=== PATIENT | male | born 1955 | race Caucasian/White ===

== ENCOUNTER → 2018-01-27 07:02 | Outpatient (CLI) | payer SELFPAY ==
[2018-01-27 10:14] LABS: AST(SGOT) 22 U/L (15-37); Alanine Aminotransfer ALT/SGPT 41 U/L (16-61); Albumin, Serum 3.6 g/dL (3.2-5.0); Alkaline Phosphatase 72 U/L (45-117); Bilirubin, Direct 0.08 mg/dL (0.00-0.30); Cholesterol 147 mg/dL (200); Globulin 3.7 g/dL (2.2-4.2); High Density Lipoprotein 36 mg/dL; Protein, Total 7.3 g/dL (6.4-8.2); Triglycerides 110 mg/dL; Very Low Density Lipoprotein 22 mg/dL (5-40)
[2018-01-27 10:22] LABS: Glucose 132 mg/dL (74-106); PSA,Total- Diagnostic 3.95 ng/mL (0.0-4.0)
[2018-01-27 10:26] LABS: Hemoglobin A1c 6.4 % (4.2-6.3)
== END ==
PROVIDERS: Internal Medicine Cardiovascular Disease; Family Provider Family Medicine; PCP Family Medicine; Visit Provider Family Medicine
DX: E78.5 Hyperlipidemia, unspecified (principal); R73.09 Other abnormal glucose; R97.20 Elevated prostate specific antigen [PSA]; Z79.899 Other long term (current) drug therapy
CPT/HCPCS: 36415; 80061; 80076; 82947; 83036; 84153

== ENCOUNTER 2018-02-03 08:59 | Inpatient (IN) | payer OTHER, SELFPAY ==
[2018-02-03] VITALS (12 sets, daily range): BP systolic 114–145; BP diastolic 70–90; PULSE 58–80; RESP 14–18; TEMP 36.7–36.9; O2SAT 96–99; BMI 33.5; BMI 32.5
--- NOTE | 2018-02-03 09:07 | EKG12_ITS ---
Test Reason : DIZZINESS/SYNCOPE Blood Pressure : / mmHG Vent. Rate : 076 BPM Atrial Rate : 076 BPM P-R Int : 168 ms QRS Dur : 100 ms QT Int : 366 ms P-R-T Axes : 055 -04 033 degrees QTc Int : 411 ms Sinus rhythm with occasional Premature ventricular complexes Low voltage QRS (LIMB LEADS) Poor R wave progression Confirmed by AURA MARLOW, DANA ([id number]), editorial assistant ASHLEY MENDES ([id number] on 02/09/2018 1:33:19 PM Referred By: Gabriel Mendes Confirmed By:DANA CHAVARRIA MD
[2018-02-03] MEDS: 0.9% Normal Saline 1,000 ML 150 ML IV ×3 (09:12→20:48)
[2018-02-03 09:15] LABS: Absolute Lymphocyte Count 2.51 X10^3/ul (0.83-4.51); Absolute Neutrophil Count 4.8 X10^3/uL (2.0-7.7); Basophil# 0.03 X10^3/uL; Basophil% 0.4 % (0-1); Eosinophil# 0.26 X10^3/uL; Eosinophils% 3.1 % (0-5); Hematocrit 44.8 % (40-54); Lymphocyte # 2.51 X10^3/ul (4.0); Lymphocyte % 29.6 % (19-41); Mean Corp Hgb Conc 33.5 g/gl (32-36); Mean Corpuscular Hgb 30.5 pg (27.0-32.0); Mean Corpuscular Volume 91.1 fL (80-94); Monocyte# 0.84 X10^3/uL; Monocyte% 9.9 % (0-10); Neutrophil # 4.81 X10^3/uL (2.7-7.7); Neutrophil % 56.8 % (47-70); POSITIVE COUNT NO; POSITIVE DIFFERENTIAL NO; POSITIVE MORPHOLOGY NO; Platelet Count 253 K/mm3 (150-450); RBC Distribution Width CV 13.2 % (11.6-14.6); RBC Distribution Width SD 43.8 fl (35.1-43.9); Red Blood Count 4.92 M/mm3 (4.6-6.2); White Blood Count 8.5 K/mm3 (4.4-11.0)
--- NOTE | 2018-02-03 09:21 | RAD_ITS ---
STUDY: X-RAY CHEST REASON FOR EXAM: Male, 62 years old. Syncopal episode. TECHNIQUE: Single AP portable view of the chest. COMPARISON: Comparison is made with prior study dated June 04, 2010. FINDINGS: EKG electrodes are seen. The lungs are clear and expanded. There is no demonstrated pleural abnormality. Normal size heart. Normal mediastinum and louie. Normal visualized pulmonary arteries. Normal visualized aortic arch and descending thoracic aorta. Normal visualized thoracic spine. Normal visualized ribs, clavicles, and shoulders. There is no demonstrated abnormality of the visualized soft tissue structures of the upper abdomen. RAD/Chest 1 View (Portable) IMPRESSION: Normal x-ray examination of the chest. Electronically Signed: Hitesh Solis MD at 9:51 EDT Tel [phone], Service support ,
--- NOTE | 2018-02-03 09:24 | CT_ITS ---
STUDY: CT BRAIN WITHOUT CONTRAST REASON FOR EXAM: Male, 62 years old. Dizziness. Unresponsiveness. RADIATION DOSAGE (If Supplied By Facility): CTDIvol = ( 44.99 ) mGy, DLP = ( 762.36 ) mGycm TECHNIQUE: Transaxial CT imaging of the brain was performed without administration of intravenous contrast material. Individualized dose optimization techniques were used for this CT. COMPARISON: None. FINDINGS: Normal soft tissue structures. Normal calvarium. Normal size ventricles and extra-axial spaces for the patient's age. Normal white matter tracts of the cerebral hemispheres. Normal basal ganglia and thalami. Normal brainstem. Normal cerebellum. There is no intracranial hemorrhage. There are no findings of an acute ischemic infarction. Normal visualized paranasal sinuses. CT/Brain/Head without Contrast IMPRESSION: Normal unenhanced CT scan of the brain. Electronically Signed: Hitesh Solis MD at 9:52 EDT Tel [phone], Service support ,
[2018-02-03 09:26] LABS: Anion Gap 8 (5-15); BUN 13 mg/dL (7-18); BUN/Creat Ratio 13.5 RATIO (10-20); Calcium,Total 8.4 mg/dL (8.5-10.1); Chloride 108 mmol/L (98-107); Creatinine, Serum 0.96 mg/dL (0.70-1.30); EST Glomerular Filtration Rate 84 mL/min (>60); Est Glom Filt Rate - Afr Amer 102 mL/min (>60); Estimated Creatinine Clearance 81.83 ml/min; Glucose 177 mg/dL (74-106); Potassium 3.8 mmol/L (3.5-5.1); Sodium Level 140 mmol/L (136-145)
--- NOTE | 2018-02-03 10:12 | ED.VISSUMM ---
- ER Visit Summary Date of Service: 02/03/18 Chief Complaint: [Syncope] History of Present Illness: The patient is a 62 M [presents to the emergency department with complaint of syncopal episode today while at work. Patient remembers being at his desk and feeling lightheaded or dizzy. Patient states the next thing he remembers he was surrounded by nurses. 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 There was no seizure-like activity noted. Patient denies any chest pain, palpitations, or shortness of breath. On arrival in the emergency department patient is asymptomatic. Patient does have a history of coronary artery disease with 3 cardiac stents placed in 2009. Patient has a history of hypertension and high cholesterol. Patient states that he did have one other episode of passing out many years ago after drinking a very cold drink. Patient denies coughing or sneezing or any painful stimulus prior to the episode today. Patient has not had any recent illness.] Physical Examination: [HEENT-PERRLA, EOMI. Cranial nerves II through XII grossly intact. TMs clear. Mucous membranes moist. No adenopathy. No bite wounds to tongue or oral mucosa. Cardiovascular-regular rate and rhythm without murmur or ectopy Lungs-clear to auscultation, chest wall stable without crepitus or subcu emphysema Abdomen-normoactive bowel sounds, soft, nontender, no rebound or rigidity, no peritoneal signs. Patient was incontinent of urine. Neuro ipdf-olxhjh-itwh and heel olguin testing within normal limits, negative Romberg, negative pronator drift, fundi benign. NIH stroke scale equals 0. Extremities-intact ?4, normal range of motion, normal pulses, atraumatic] Test Results: [CT scan of the brain without contrast showed nothing acute. Chest x-ray was normal. EKG obtained shows sinus rhythm with a ventricular rate of 76 bpm with occasional PVCs. CBC with differential was normal. Chemistries were normal. Troponin was less than 0.015. Orthostatics were positive and that his blood pressure dropped by more than 20 points on the systolic side.] Emergency Department Course and Treatment: [Patient was given 1 L normal same fluid bolus] Treatment Plan: Admit for further workup and evaluation of syncope. [It is unclear the cause of the syncope vasovagal versus seizure versus dysrhythmia.] Disposition: [Admit] Impression: [Syncope-etiology uncertain] This note was generated with [employer] dictation software. It may contain incorrect words, spelling, and punctuation that were not noted in review of the chart prior to signing ED Disposition - Plan for ED Patient: Chief Complaint: Dizziness Referrals: Gabriel Mendes MD [Primary Care Provider] -
--- NOTE | 2018-02-03 10:16 | ED.DCSUM_ITS ---
- ER Visit Summary Date of Service: 02/03/18 Chief Complaint: [Syncope] History of Present Illness: The patient is a 62 M [presents to the emergency department with complaint of syncopal episode today while at work. Patient remembers being at his desk and feeling lightheaded or dizzy. Patient states the next thing he remembers he was surrounded by nurses. 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 There was no seizure-like activity noted. Patient denies any chest pain, palpitations, or shortness of breath. On arrival in the emergency department patient is asymptomatic. Patient does have a history of coronary artery disease with 3 cardiac stents placed in 2009. Patient has a history of hypertension and high cholesterol. Patient states that he did have one other episode of passing out many years ago after drinking a very cold drink. Patient denies coughing or sneezing or any painful stimulus prior to the episode today. Patient has not had any recent illness.] Physical Examination: [HEENT-PERRLA, EOMI. Cranial nerves II through XII grossly intact. TMs clear. Mucous membranes moist. No adenopathy. No bite wounds to tongue or oral mucosa. Cardiovascular-regular rate and rhythm without murmur or ectopy Lungs-clear to auscultation, chest wall stable without crepitus or subcu emphysema Abdomen-normoactive bowel sounds, soft, nontender, no rebound or rigidity, no peritoneal signs. Patient was incontinent of urine. Neuro bcej-ndzjvd-phql and heel olguin testing within normal limits, negative Romberg, negative pronator drift, fundi benign. NIH stroke scale equals 0. Extremities-intact ?4, normal range of motion, normal pulses, atraumatic] Test Results: [CT scan of the brain without contrast showed nothing acute. Chest x-ray was normal. EKG obtained shows sinus rhythm with a ventricular rate of 76 bpm with occasional PVCs. CBC with differential was normal. Chemistries were normal. Troponin was less than 0.015. Orthostatics were positive and that his blood pressure dropped by more than 20 points on the systolic side.] Emergency Department Course and Treatment: [Patient was given 1 L normal same fluid bolus] Treatment Plan: Admit for further workup and evaluation of syncope. [It is unclear the cause of the syncope vasovagal versus seizure versus dysrhythmia.] Disposition: [Admit] Impression: [Syncope-etiology uncertain] This note was generated with [employer] dictation software. It may contain incorrect words, spelling, and punctuation that were not noted in review of the chart prior to signing ED Disposition - Plan for ED Patient: Chief Complaint: Dizziness Referrals: Gabriel Mendes MD [Primary Care Provider] -
[2018-02-03] MEDS: 0.9% Normal Saline 1,000 ML 999 ML IV (11:34)
--- NOTE | 2018-02-03 12:29 | ECHOD_ITS ---
Reason For Study: SYNCOPE Procedure This was a 2D Doppler, Color Flow transthoracic echocardiogram. The exam was of fair technical quality due to body habitus. The study was technically difficult. Contrast injection was performed. Exam performed portable in patient room. Left Ventricle Normal LV size. Segmental dysfunction with preserved ejection fraction (see wall motion). The estimated ejection fraction is 55 %. No evidence for diastolic dysfunction. Posterior-Basal: Hypokinetic. Infero-Basal: Hypokinetic. Right Ventricle Normal RV size. Normal systolic function. Atria Normal left atrium. Normal right atrium. No doppler evidence for ASD. Mitral Valve There is no mitral annular calcification. Normal mitral valve. Trivial mitral valve insufficiency. Tricuspid Valve Normal tricuspid valve. Trivial tricuspid valve insufficiency. Right ventricular systolic pressure estimated to be 24 mmHg. Aortic Valve Trisinus/trileaflet aortic valve. Normal aortic valve. Pulmonic Valve The pulmonic valve is not well visualized. Trivial pulmonic valve insufficiency. Great Vessels Normal sized aortic root. Pericardium/Pleural No pericardial effusion. Medication Diluted definity 4ml given slow IV push to enhance endocardial definition. MMode/2D Measurements & Calculations LVIDd: 4.9 cm IVSd: 0.87 cm Ao root diam: 3.2 cm LVIDs: 3.7 cm LVPWd: 0.86 cm RVDd: 4.2 cm FS: 25.6 % LAV(MOD-bp): 65.6 ml EDV(MOD-sp4): 167.0 ml EDV(MOD-sp2): 104.3 ml LAV(MOD-bp) Indexed: 30.5 ml/m2 ESV(MOD-sp4): 74.4 ml EF(MOD-sp2): 47.5 % LAV(MOD-sp2): 42.2 ml EF(MOD-sp4): 55.4 % LAV(MOD-sp4): 75.5 ml SV(MOD-sp4): 92.6 ml SV(MOD-sp2): 49.5 ml LA A4 area: 25.0 cm2 RA A4 area: 21.9 cm2 Doppler Measurements & Calculations MV E max david: 90.3 cm/sec Lat Peak E' David: 14.2 cm/sec Med Peak E' David: 9.6 cm/sec MV A max david: 60.1 cm/sec E/E' lat: 6.4 E/E' med: 9.4 MV E/A: 1.5 Ao V2 max: 128.2 cm/sec LV V1 max: 104.2 cm/sec PA V2 max: 94.0 cm/sec Ao max P.6 mmHg LV V1 max P.3 mmHg TR max david: 230.0 cm/sec TR max P.2 mmHg Interpretation Summary The study was technically difficult. Contrast injection was performed. Segmental dysfunction with preserved ejection fraction (see wall motion). The estimated ejection fraction is 55 %. Trivial mitral valve insufficiency. Trivial tricuspid valve insufficiency. Trivial pulmonic valve insufficiency. Right ventricular systolic pressure estimated to be 24 mmHg. No evidence for diastolic dysfunction. Ordering Physician: Edwin Botello Referring Physician: Gabriel Mendes Performed By: Payton Mercedes, RAMEZ, RVT
[2018-02-03 13:06] LABS: Magnesium 1.9 mg/dL (1.6-2.6)
--- NOTE | 2018-02-03 19:16 | PCM.HP.STD ---
Problem List (1) Syncope Status: Acute Qualifiers: Syncope type: unspecified Qualified Code(s): R55 - Syncope and collapse (2) HTN (hypertension), benign Status: Chronic (3) Atherosclerotic heart disease of [place] coronary artery without angina pectoris Status: Chronic Qualifiers: Comment: 7-10-10 PTCA/PHOEBE to circ, 7-12-10 PTCA/PHOEBE to mid LAD,proximal first diagonal; (4) HLD (hyperlipidemia) Status: Chronic Qualifiers: History of Present Illness Date of Admission: 02/03/18 Chief Complaint: Syncope. Patient is a 63 years old male who presents with an episode of syncope, admitted on 02/03/18. He was at work this morning, doing some desk job. He suddenly felt funny with blurred vision. 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 He was diaphoretic after he woke up, but did not think he had chest pain. He did not have significant problems with dizziness, or visual change with darkening / white-out following blurred vision. He has no previous history of seizure disorder, although he had accident with bladder incontinence. Loss of consciousness itself was unwitnessed. He has history of coronary artery disease, had stent placement in 2009. He reports good normal function recently without any symptoms of angina. Initial troponin was normal, and EKG showed normal sinus rhythm with occasional PAC. Later, his troponin was elevated to 0.329. Past Medical History Past Medical History (Chronic Problems): Chronic Problems (Last Updated 12/21/17 @ 17:04 by Augusto dAam) Encounter for long-term current use of high risk medication (Chronic) Palpitations (Chronic) HTN (hypertension), benign (Chronic) H/O percutaneous transluminal coronary angioplasty (Chronic) 7-10-10 PTCA/PHOEBE to circ, 7-12-10 PTCA/PHOEBE to mid LAD,proximal first diagonal; Atherosclerotic heart disease of [place] coronary artery without angina pectoris (Chronic) 7-10-10 PTCA/PHOEBE to circ, 7-12-10 PTCA/PHOEBE to mid LAD,proximal first diagonal; Old myocardial infarction (Chronic) HLD (hyperlipidemia) (Chronic) Allergies dye Allergy (Uncoded 02/03/18 09:06) Rash ANGIOGRAM DYE Home Medications: Ambulatory Orders Medication Instructions Recorded losartan 50 mg tablet 50 mg PO QDAY #90 tab 10/11/17 aspirin 81 mg tablet,delayed 81 mg PO QDAY tab 12/23/17 release atorvastatin 80 mg tablet 80 mg PO QDAY 12/23/17 Smoking Status: Former smoker - *Family History Sibling History Items: Asthma - Sister., Seizures - History of pediatric seizure with his sister. Review of Systems Comment: ROS: In general: Patient has been in good health, denied of any constitutional symptoms, such as weight loss, or gain, fever, chills, or night sweats. Patient denied of any profound fatigue. HEENT: Unremarkable. Patient denied of any dizziness, chronic headache, blurred vision, double vision, dry mouth, or nasal congestion. CV/respiratory: See HPI. GI: Patient denied any abdominal pain, nausea, vomiting, diarrhea, constipation, melena, or hematochezia. : Patient denied any significant urinary symptoms. Neurology: Unremarkable. There is no history of seizure as an adult. Psychological: Unremarkable. ?. Endocrine: Unremarkable. Musculoskeletal: Unremarkable. VTE Information - Inpt Only VTE Present on Admission: No VTE Mechan Device Prophylaxis: Knee High RADHA Hose VTE Pharm Prophylaxis ordered?: Yes Patient Problems: Active and Suspected Problems (Last Updated 12/21/17 @ 17:04 by Augusto Adam) Syncope (Acute) Objective: In general, patient is a well-nourished and developed adult. HEENT: Head is atraumatic, and normocephalic. Pupils are equal, round, and reactive to light and accommodations. Neck is supple. There is no lymphadenopathy, or thyromegaly. Oral mucosa is pink, and moist. There are no lesions. Heart: Auscultation is normal with regular rhythm and rate. There is no extra heart sounds, or murmurs. S1 and S2 are present. Point of maximal impulse is not displaced. Lungs: Lungs are clear to auscultation bilaterally. There is no wheezing, or crackles. Abdomen: Abdominal wall is non-tender, and non-distended. There is no palpable mass or organomegaly. Normoactive bowel sounds are present. Extremities: There is no cyanosis or clubbing. Peripheral pulses are palpable. There is no edema. Skin: There are no any skin discoloration or lesions. Neurological: CN II - XII are intact. Sensory and motor functions are grossly normal with no obvious deficit. Cerebellar functions are within normal range. Gait was not tested. - Physical Exam Vital Signs Temp Pulse Resp BP Pulse Ox 98.2 F 65 16 135/71 H 96 02/03/18 17:16 02/03/18 17:16 02/03/18 17:16 02/03/18 17:16 02/03/18 17:16 Oxygen Flow Rate (L/min) 2 Oxygen Delivery Method Nasal Cannula Weight: 220 lb 0.341 oz Body Mass Index (BMI) 32.5 Intake and Output for Last 24 Hours 02/01/18 02/02/18 02/03/18 23:59 23:59 23:59 Intake Total 541 / 541 Balance 541 / 541 Laboratory Tests Past 24 Hrs 02/03/18 02/03/18 12:09 15:15 Troponin I 0.329 H 0.435 H Diagnostic Data Chest X-Ray 02/03/18 09:21 IMPRESSION: Normal x-ray examination of the chest. Electronically Signed: Hitesh Solis MD at 9:51 EDT Tel [phone], Service support , Brain CT 02/03/18 09:24 IMPRESSION: Normal unenhanced CT scan of the brain. Electronically Signed: Hitesh Solis MD at 9:52 EDT Tel [phone], Service support , Assessment/Plan Active and Suspected Problems (Last Updated 12/21/17 @ 17:04 by Augusto Adam) Syncope (Acute) Patient is a 63 years old male who presents with an episode of syncope, admitted on 02/03/18. He was at work this morning, doing some desk job. He suddenly felt funny with blurred vision. 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 He was diaphoretic after he woke up, but did not think he had chest pain. He did not have significant problems with dizziness, or visual change with darkening / white-out following blurred vision. He has no previous history of seizure disorder, although he had accident with bladder incontinence. Loss of consciousness itself was unwitnessed. He has history of coronary artery disease, had stent placement in 2009. He reports good normal function recently without any symptoms of angina. Initial troponin was normal, and EKG showed normal sinus rhythm with occasional PAC. Later, his troponin was elevated to 0.329. #1 Syncope. Troponin was been elevating. Continue to trend. Etiology is not clear. Possibly due to ACS, or he may have episodes of tachyarrhythmia that causes syncopal episode and demand-mismatch. He is chest pain free. Consult cardiology. #2 Elevated troponin. See above. #3 History of coronary artery disease. S/P stent in 2009. He follows Dr. Valle. #4 Essential hypertension. Continue losartan. VTE prophylaxis: heparin SQ. GI prophylaxis: H2 gifty po. Patient is full code. Disposition: Home in 1 to 2 days Code Visit OBSV E&M: 20676 Initial observation care L3
--- NOTE | 2018-02-03 19:28 | HP.PCM_ITS ---
Problem List (1) Syncope Status: Acute Qualifiers: Syncope type: unspecified Qualified Code(s): R55 - Syncope and collapse (2) HTN (hypertension), benign Status: Chronic (3) Atherosclerotic heart disease of [place] coronary artery without angina pectoris Status: Chronic Qualifiers: Comment: 7-10-10 PTCA/PHOEBE to circ, 7-12-10 PTCA/PHOEBE to mid LAD,proximal first diagonal; (4) HLD (hyperlipidemia) Status: Chronic Qualifiers: History of Present Illness Date of Admission: 02/03/18 Chief Complaint: Syncope. Patient is a 63 years old male who presents with an episode of syncope , admitted on 02/03/18. He was at work this morning, doing some desk job. He suddenly felt ?funny? with blurred vision. 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 He was diaphoretic after he woke up, but did not think he had chest pain. He did not have significant problems with dizziness, or visual change with darkening / ?white-out? following blurred vision. He has no previous history of seizure disorder, although he had accident with bladder incontinence. Loss of consciousness itself was unwitnessed. He has history of coronary artery disease, had stent placement in 2009. He reports good normal function recently without any symptoms of angina. Initial troponin was normal, and EKG showed normal sinus rhythm with occasional PAC. Later, his troponin was elevated to 0.329. Past Medical History Past Medical History (Chronic Problems): Chronic Problems (Last Updated 12/21/17 @ 17:04 by Augusto Adam) Encounter for long-term current use of high risk medication (Chronic) Palpitations (Chronic) HTN (hypertension), benign (Chronic) H/O percutaneous transluminal coronary angioplasty (Chronic) 7-10-10 PTCA/PHOEBE to circ, 7-12-10 PTCA/PHOEBE to mid LAD,proximal first diagonal; Atherosclerotic heart disease of [place] coronary artery without angina pectoris (Chronic) 7-10-10 PTCA/PHOEBE to circ, 7-12-10 PTCA/PHOEBE to mid LAD,proximal first diagonal; Old myocardial infarction (Chronic) HLD (hyperlipidemia) (Chronic) Allergies dye Allergy (Uncoded 02/03/18 09:06) Rash ANGIOGRAM DYE Home Medications: Ambulatory Orders Medication Instructions Recorded losartan 50 mg tablet 50 mg PO QDAY #90 tab 10/11/17 aspirin 81 mg tablet,delayed 81 mg PO QDAY tab 12/23/17 release atorvastatin 80 mg tablet 80 mg PO QDAY 12/23/17 Smoking Status: Former smoker - *Family History Sibling History Items: Asthma - Sister., Seizures - History of pediatric seizure with his sister. Review of Systems Comment: ROS: In general: Patient has been in good health, denied of any constitutional symptoms, such as weight loss, or gain, fever, chills, or night sweats. Patient denied of any profound fatigue. HEENT: Unremarkable. Patient denied of any dizziness, chronic headache, blurred vision, double vision, dry mouth, or nasal congestion. CV/respiratory: See HPI. GI: Patient denied any abdominal pain, nausea, vomiting, diarrhea, constipation, melena, or hematochezia. : Patient denied any significant urinary symptoms. Neurology: Unremarkable. There is no history of seizure as an adult. Psychological: Unremarkable. ?. Endocrine: Unremarkable. Musculoskeletal: Unremarkable. VTE Information - Inpt Only VTE Present on Admission: No VTE Mechan Device Prophylaxis: Knee High RADHA Hose VTE Pharm Prophylaxis ordered?: Yes Patient Problems: Active and Suspected Problems (Last Updated 12/21/17 @ 17:04 by Augusto Adam) Syncope (Acute) Objective: In general, patient is a well-nourished and developed adult. HEENT: Head is atraumatic, and normocephalic. Pupils are equal, round, and reactive to light and accommodations. Neck is supple. There is no lymphadenopathy, or thyromegaly. Oral mucosa is pink, and moist. There are no lesions. Heart: Auscultation is normal with regular rhythm and rate. There is no extra heart sounds, or murmurs. S1 and S2 are present. Point of maximal impulse is not displaced. Lungs: Lungs are clear to auscultation bilaterally. There is no wheezing, or crackles. Abdomen: Abdominal wall is non-tender, and non-distended. There is no palpable mass or organomegaly. Normoactive bowel sounds are present. Extremities: There is no cyanosis or clubbing. Peripheral pulses are palpable. There is no edema. Skin: There are no any skin discoloration or lesions. Neurological: CN II - XII are intact. Sensory and motor functions are grossly normal with no obvious deficit. Cerebellar functions are within normal range. Gait was not tested. - Physical Exam Vital Signs Temp Pulse Resp BP Pulse Ox 98.2 F 65 16 135/71 H 96 02/03/18 17:16 02/03/18 17:16 02/03/18 17:16 02/03/18 17:16 02/03/18 17:16 Oxygen Flow Rate (L/min) 2 Oxygen Delivery Method Nasal Cannula Weight: 220 lb 0.341 oz Body Mass Index (BMI) 32.5 Intake and Output for Last 24 Hours 02/01/18 02/02/18 02/03/18 23:59 23:59 23:59 Intake Total 541 / 541 Balance 541 / 541 Laboratory Tests Past 24 Hrs 02/03/18 02/03/18 12:09 15:15 Troponin I 0.329 H 0.435 H Diagnostic Data Chest X-Ray 02/03/18 09:21 IMPRESSION: Normal x-ray examination of the chest. Electronically Signed: Hitesh Solis MD at 9:51 EDT Tel [phone], Service support , Brain CT 02/03/18 09:24 IMPRESSION: Normal unenhanced CT scan of the brain. Electronically Signed: Hitesh Solis MD at 9:52 EDT Tel [phone], Service support , Assessment/Plan Active and Suspected Problems (Last Updated 12/21/17 @ 17:04 by Augusto Adam) Syncope (Acute) Patient is a 63 years old male who presents with an episode of syncope , admitted on 02/03/18. He was at work this morning, doing some desk job. He suddenly felt ?funny? with blurred vision. 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 He was diaphoretic after he woke up, but did not think he had chest pain. He did not have significant problems with dizziness, or visual change with darkening / ?white-out? following blurred vision. He has no previous history of seizure disorder, although he had accident with bladder incontinence. Loss of consciousness itself was unwitnessed. He has history of coronary artery disease, had stent placement in 2009. He reports good normal function recently without any symptoms of angina. Initial troponin was normal, and EKG showed normal sinus rhythm with occasional PAC. Later, his troponin was elevated to 0.329. #1 Syncope. Troponin was been elevating. Continue to trend. Etiology is not clear. Possibly due to ACS, or he may have episodes of tachyarrhythmia that causes syncopal episode and demand-mismatch. He is chest pain free. Consult cardiology. #2 Elevated troponin. See above. #3 History of coronary artery disease. S/P stent in 2009. He follows Dr. Valle. #4 Essential hypertension. Continue losartan. VTE prophylaxis: heparin SQ. GI prophylaxis: H2 gifty po. Patient is full code. Disposition: Home in 1 to 2 days Code Visit OBSV E&M: [id number] Initial observation care L3
--- NOTE | 2018-02-03 20:24 | PCM.CONS.C ---
Problem List (1) Syncope Status: Acute (2) NSTEMI (non-ST elevated myocardial infarction) Status: Acute (3) CAD (coronary artery disease) Status: Chronic Qualifiers: Coronary Disease-Associated Artery/Lesion type: [place] artery [place] vs. transplanted heart: [place] heart Associated angina: without angina Qualified Code(s): I25.10 - Atherosclerotic heart disease of [place] coronary artery without angina pectoris (4) S/P PTCA (percutaneous transluminal coronary angioplasty) Status: Chronic (5) HLD (hyperlipidemia) Status: Chronic Qualifiers: Hyperlipidemia type: unspecified Qualified Code(s): E78.5 - Hyperlipidemia, unspecified (6) HTN (hypertension), benign Status: Chronic Reason for Consult Date of Consultation: 02/03/18 History of Present Illness: The patient is a 62 year old white male with a past medical history of underlying CAD, PCI, hyperlipidemia, and hypertension who presents for evaluation of syncope. 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 He notes the next thing he remembers is multiple people standing around him saying that he looked flushed and diaphoretic area and he does not recall sensing any palpitations or alterations in his underlying cardiac rate or rhythm. He does not recall any chest discomfort or difficulty breathing prior to or following his event. He states he was evaluated by the EMS and subsequently brought to the hospital for further evaluation. He notes by the time he arrived at the hospital he was feeling near normal. Since being in the hospital he states he feels back to his usual status. He has remained very active. He has not described any concerning symptoms with activity. He has had no orthopnea or PND or peripheral pitting edema. He has noted remote palpitations for which she is undergone evaluation in the past which included a 24-hour Holter monitor performed on 03/23/2017 that noted rare PACs and rare PVCs. He had no narrow or wide complex runs and no prolonged pauses. He has not had syncope in the past. Since being in the hospital he has had cardiac enzymes performed which have been noted for abnormal troponin I levels. His ECG was noted for underlying sinus rhythm with low voltage QRS in the limb leads and poor R-wave progression. He has had an occasional PVC. He underwent a transthoracic echocardiogram that demonstrated the left ventricle to have left ventricular regional wall motion abnormalities with overall preserved LVEF of 55% with trivial MR/TR and IA. His estimated RV systolic pressure was 24 mmHg. He had no evidence of diastolic dysfunction. He also had a brain CT scan performed. According to the radiology report this was a normal unenhanced brain CT scan. [] Past Medical History Allergies/Adverse Reactions: Allergies dye Allergy (Uncoded 02/03/18 09:06) Rash ANGIOGRAM DYE Home Medications: Ambulatory Orders Medication Instructions Recorded losartan 50 mg tablet 50 mg PO QDAY #90 tab 10/11/17 aspirin 81 mg tablet,delayed 81 mg PO QDAY tab 12/23/17 release atorvastatin 80 mg tablet 80 mg PO QDAY 12/23/17 Past Medical History (Chronic Problems): Chronic Problems (Last Updated 12/21/17 @ 17:04 by Augusto Adam) CAD (coronary artery disease) (Chronic) S/P PTCA (percutaneous transluminal coronary angioplasty) (Chronic) Encounter for long-term current use of high risk medication (Chronic) Palpitations (Chronic) HTN (hypertension), benign (Chronic) H/O percutaneous transluminal coronary angioplasty (Chronic) 7-10-10 PTCA/PHOEBE to circ, 7-12-10 PTCA/PHOEBE to mid LAD,proximal first diagonal; Atherosclerotic heart disease of [place] coronary artery without angina pectoris (Chronic) 7-10-10 PTCA/PHOEBE to circ, 7-12-10 PTCA/PHOEBE to mid LAD,proximal first diagonal; Old myocardial infarction (Chronic) HLD (hyperlipidemia) (Chronic) Surgical History: angioplasty - *Family History Sibling Family History: Family History (Last Reviewed 12/24/17 @ 11:34 by Lashell Bird) Father CAD (coronary artery disease) Diabetes Myocardial infarction Mother Hypertension HLD (hyperlipidemia) Sister Hypertension Sister Asthma Sister Arthritis History Items: Asthma - Sister., Seizures - History of pediatric seizure with his sister. Lives: Spouse/ Significant Other Smoking Status: Former smoker Alcohol: None Drugs: None Review of Systems - Review of Systems General: Denies: Fever, Night Sweats, Fatigue Cardiovascular: Reports: Syncope. Denies: Chest Discomfort, Shortness of Breath, Orthopnea, PND, Peripheral Edema, Palpitations, Lightheadedness, Dizziness, Near Syncope Respiratory: Denies: Cough, Sputum Production, Hemoptysis Gastrointestinal: Denies: Hematemesis, Hematochezia, Melena Genitourinary: Denies: Dysuria, Hematuria Skin: Denies: Rash Subjectve: This is a 62-year-old white male appears to be resting comfortably at the moment in no acute distress Objective: Vital Signs Temp Pulse Resp BP Pulse Ox 98.2 F 68 16 135/71 H 96 02/03/18 17:16 02/03/18 18:58 02/03/18 17:16 02/03/18 17:16 02/03/18 17:16 Oxygen Flow Rate (L/min) 2 Oxygen Delivery Method Nasal Cannula Weight: 220 lb 0.341 oz Body Mass Index (BMI) 32.5 Intake and Output for Last 24 Hours 02/01/18 02/02/18 02/03/18 23:59 23:59 23:59 Intake Total 541 / 541 Balance 541 / 541 General: Awake, Alert, Oriented x 3, Cooperative, No Acute Distress HEENT: Atraumatic, Normocephalic, PERRL, EOMI, Sclera Non Icteric Oral: Moist Mucosa Neck: Supple, Good ROM, No JVD Lungs: Clear to auscultation Cardiovascular: Regular Rhythm, Premature Ectopic Beats, Normal S1, Normal S2 Vascular: No Carotid Bruits Abdomen: Bowel Sounds Present, Soft, Non Tender Extremities: No Cyanosis, No Clubbing, No edema Neurological: No Focal Motor or Sensory Deficit 02/03/18 12:09: Troponin I 0.329 H 02/03/18 15:15: Troponin I 0.435 H Rhythm: Sinus rhythm; occasional PVC EKG: As noted above ECHO: As noted above Stress Test: 06/05/2010: Exercise tolerance test/nuclear imaging study: Small fixed basal inferior perfusion defect suggestive of prior infarct with no significant reversible defects to suggest stress-induced myocardial ischemia with a gated LVEF of 55% Cardiac Cath: [facility]: 09/01/2010: Left main considered absent; LAD demonstrating a mid 80% stenosis; diagonal branch demonstrating a proximal 90% stenosis; LCx demonstrating a previously placed PHOEBE in the midsection being patent; RCA being patent [facility]: 03/22/2010: Left ventricle with mild hypokinesis of the inferior wall with an LVEF of 55%; mid LAD with 80% stenosis; first diagonal branch with 80% stenosis; LCx reported as distally occluded with subsequent successful PHOEBE; proximal RCA with 60% stenosis; left main coronary artery considered absent PCI: 03/24/2010: PHOEBE to the mid LAD and to the first diagonal branch Holter monitor: As noted above CXR: Preliminary evaluation: No acute cardiopulmonary disease process appreciated Assessment/Plan 1. Syncope The patient had a syncopal event. The etiology is unclear. From a cardiac standpoint he does have underlying cardiovascular disease and now has been found to have abnormal cardiac as well as abnormal troponin I levels. This would raise the concern of the possibility of progression of CAD which could lead to myocardial ischemia which could lead to transient dysrhythmias and subsequent syncope. The patient has been evaluated for other etiologies including a primary TAX ASSESSOR event. This appears to be negative at this time. No report of any obvious classic seizure like activity with tremulous body motion. However he may still be evaluated for this. Other possible etiologies may include thromboembolic disease such as pulmonary emboli. The patient did have a trip to [place] approximately 3-4 weeks ago. He states he drove to [place] and back in his RV. He states he had frequent stops based upon needing to let his dogs out of the vehicle. He denies any concerning lower extremity discomfort, erythema, edema, etc. since returning from his trip. At the present time the patient will continue to be monitored. He will continue his cardiovascular evaluation. This will include a repeat diagnostic cardiac catheterization. The procedure and risks were discussed with the patient and he was agreeable to this approach. In the interim he will continue cardiovascular medical therapy as deemed appropriate. 2. Non-ST segment elevation [place] She does have abnormal troponin I levels concerning for an acute non-ST segment elevation [place]. Thus far there is no other definitive explanation for his troponin I levels. He will continue evaluation care as noted above. 3. CAD status post previous PTCA/PHOEBE to the LAD, diagonal branch, and LCx There are concerns of the patient may have progressed with underlying CAD as noted above which could lead to myocardial ischemia, transient dysrhythmias, and syncope. There are no other obvious explanations at this time to explain the patient's event he will continue his cardiac monitoring, medical therapy, and further evaluation. Again this will include repeat diagnostic cardiac catheterization which depending upon the findings may or may not lead to additional revascularization therapy. 4. Hyperlipidemia The patient will continue lipid-lowering therapy. 5. Hypertension The patient's blood pressure is being monitored. He will continue medical management and follow-up. Comment: The patient's case was discussed with the patient, his spouse, and Dr. Botello. This note was generated with [employer] dictation software. It may contain incorrect words, spelling, and punctuation that were not noted in checking the note before signing.
--- NOTE | 2018-02-03 20:35 | CON.PCM_ITS ---
Problem List (1) Syncope Status: Acute (2) NSTEMI (non-ST elevated myocardial infarction) Status: Acute (3) CAD (coronary artery disease) Status: Chronic Qualifiers: Coronary Disease-Associated Artery/Lesion type: [place] artery [place] vs. transplanted heart: [place] heart Associated angina: without angina Qualified Code(s): I25.10 - Atherosclerotic heart disease of [place] coronary artery without angina pectoris (4) S/P PTCA (percutaneous transluminal coronary angioplasty) Status: Chronic (5) HLD (hyperlipidemia) Status: Chronic Qualifiers: Hyperlipidemia type: unspecified Qualified Code(s): E78.5 - Hyperlipidemia , unspecified (6) HTN (hypertension), benign Status: Chronic Reason for Consult Date of Consultation: 02/03/18 History of Present Illness: The patient is a 62 year old white male with a past medical history of underlying CAD, PCI, hyperlipidemia, and hypertension who presents for evaluation of syncope. 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 He notes the next thing he remembers is multiple people standing around him saying that he looked flushed and diaphoretic area and he does not recall sensing any palpitations or alterations in his underlying cardiac rate or rhythm. He does not recall any chest discomfort or difficulty breathing prior to or following his event. He states he was evaluated by the EMS and subsequently brought to the hospital for further evaluation. He notes by the time he arrived at the hospital he was feeling near normal. Since being in the hospital he states he feels back to his usual status. He has remained very active. He has not described any concerning symptoms with activity. He has had no orthopnea or PND or peripheral pitting edema. He has noted remote palpitations for which she is undergone evaluation in the past which included a 24-hour Holter monitor performed on 03/23/2017 that noted rare PACs and rare PVCs. He had no narrow or wide complex runs and no prolonged pauses. He has not had syncope in the past. Since being in the hospital he has had cardiac enzymes performed which have been noted for abnormal troponin I levels. His ECG was noted for underlying sinus rhythm with low voltage QRS in the limb leads and poor R-wave progression. He has had an occasional PVC. He underwent a transthoracic echocardiogram that demonstrated the left ventricle to have left ventricular regional wall motion abnormalities with overall preserved LVEF of 55% with trivial MR/TR and [place]. His estimated RV systolic pressure was 24 mmHg. He had no evidence of diastolic dysfunction. He also had a brain CT scan performed. According to the radiology report this was a normal unenhanced brain CT scan. [] Past Medical History Allergies/Adverse Reactions: Allergies dye Allergy (Uncoded 02/03/18 09:06) Rash ANGIOGRAM DYE Home Medications: Ambulatory Orders Medication Instructions Recorded losartan 50 mg tablet 50 mg PO QDAY #90 tab 10/11/17 aspirin 81 mg tablet,delayed 81 mg PO QDAY tab 12/23/17 release atorvastatin 80 mg tablet 80 mg PO QDAY 12/23/17 Past Medical History (Chronic Problems): Chronic Problems (Last Updated 12/21/17 @ 17:04 by Augusto Adam) CAD (coronary artery disease) (Chronic) S/P PTCA (percutaneous transluminal coronary angioplasty) (Chronic) Encounter for long-term current use of high risk medication (Chronic) Palpitations (Chronic) HTN (hypertension), benign (Chronic) H/O percutaneous transluminal coronary angioplasty (Chronic) 7-10-10 PTCA/PHOEBE to circ, 7-12-10 PTCA/PHOEBE to mid LAD,proximal first diagonal; Atherosclerotic heart disease of [place] coronary artery without angina pectoris (Chronic) 7-10-10 PTCA/PHOEBE to circ, 7-12-10 PTCA/PHOEBE to mid LAD,proximal first diagonal; Old myocardial infarction (Chronic) HLD (hyperlipidemia) (Chronic) Surgical History: angioplasty - *Family History Sibling Family History: Family History (Last Reviewed 12/24/17 @ 11:34 by Lashell Bird) Father CAD (coronary artery disease) Diabetes Myocardial infarction Mother Hypertension HLD (hyperlipidemia) Sister Hypertension Sister Asthma Sister Arthritis History Items: Asthma - Sister., Seizures - History of pediatric seizure with his sister. Lives: Spouse/ Significant Other Smoking Status: Former smoker Alcohol: None Drugs: None Review of Systems - Review of Systems General: Denies: Fever, Night Sweats, Fatigue Cardiovascular: Reports: Syncope. Denies: Chest Discomfort, Shortness of Breath , Orthopnea, PND, Peripheral Edema, Palpitations, Lightheadedness, Dizziness, Near Syncope Respiratory: Denies: Cough, Sputum Production, Hemoptysis Gastrointestinal: Denies: Hematemesis, Hematochezia, Melena Genitourinary: Denies: Dysuria, Hematuria Skin: Denies: Rash Subjectve: This is a 62-year-old white male appears to be resting comfortably at the moment in no acute distress Objective: Vital Signs Temp Pulse Resp BP Pulse Ox 98.2 F 68 16 135/71 H 96 02/03/18 17:16 02/03/18 18:58 02/03/18 17:16 02/03/18 17:16 02/03/18 17:16 Oxygen Flow Rate (L/min) 2 Oxygen Delivery Method Nasal Cannula Weight: 220 lb 0.341 oz Body Mass Index (BMI) 32.5 Intake and Output for Last 24 Hours 02/01/18 02/02/18 02/03/18 23:59 23:59 23:59 Intake Total 541 / 541 Balance 541 / 541 General: Awake, Alert, Oriented x 3, Cooperative, No Acute Distress HEENT: Atraumatic, Normocephalic, PERRL, EOMI, Sclera Non Icteric Oral: Moist Mucosa Neck: Supple, Good ROM, No JVD Lungs: Clear to auscultation Cardiovascular: Regular Rhythm, Premature Ectopic Beats, Normal S1, Normal S2 Vascular: No Carotid Bruits Abdomen: Bowel Sounds Present, Soft, Non Tender Extremities: No Cyanosis, No Clubbing, No edema Neurological: No Focal Motor or Sensory Deficit 02/03/18 12:09: Troponin I 0.329 H 02/03/18 15:15: Troponin I 0.435 H Rhythm: Sinus rhythm; occasional PVC EKG: As noted above ECHO: As noted above Stress Test: 06/05/2010: Exercise tolerance test/nuclear imaging study: Small fixed basal inferior perfusion defect suggestive of prior infarct with no significant reversible defects to suggest stress-induced myocardial ischemia with a gated LVEF of 55% Cardiac Cath: [facility]: 09/01/2010: Left main considered absent; LAD demonstrating a mid 80% stenosis; diagonal branch demonstrating a proximal 90% stenosis; LCx demonstrating a previously placed PHOEBE in the midsection being patent; RCA being patent [facility]: 03/22/2010: Left ventricle with mild hypokinesis of the inferior wall with an LVEF of 55%; mid LAD with 80% stenosis; first diagonal branch with 80% stenosis; LCx reported as distally occluded with subsequent successful PHOEBE; proximal RCA with 60% stenosis; left main coronary artery considered absent PCI: 03/24/2010: PHOEBE to the mid LAD and to the first diagonal branch Holter monitor: As noted above CXR: Preliminary evaluation: No acute cardiopulmonary disease process appreciated Assessment/Plan 1. Syncope The patient had a syncopal event. The etiology is unclear. From a cardiac standpoint he does have underlying cardiovascular disease and now has been found to have abnormal cardiac as well as abnormal troponin I levels. This would raise the concern of the possibility of progression of CAD which could lead to myocardial ischemia which could lead to transient dysrhythmias and subsequent syncope. The patient has been evaluated for other etiologies including a primary MATTRESS [employer] event. This appears to be negative at this time. No report of any obvious classic seizure like activity with tremulous body motion. However he may still be evaluated for this. Other possible etiologies may include thromboembolic disease such as pulmonary emboli. The patient did have a trip to [place] approximately 3-4 weeks ago. He states he drove to [place] and back in his RV. He states he had frequent stops based upon needing to let his dogs out of the vehicle. He denies any concerning lower extremity discomfort, erythema, edema, etc. since returning from his trip. At the present time the patient will continue to be monitored. He will continue his cardiovascular evaluation. This will include a repeat diagnostic cardiac catheterization. The procedure and risks were discussed with the patient and he was agreeable to this approach. In the interim he will continue cardiovascular medical therapy as deemed appropriate. 2. Non-ST segment elevation MT She does have abnormal troponin I levels concerning for an acute non-ST segment elevation MT. Thus far there is no other definitive explanation for his troponin I levels. He will continue evaluation care as noted above. 3. CAD status post previous PTCA/PHOEBE to the LAD, diagonal branch, and LCx There are concerns of the patient may have progressed with underlying CAD as noted above which could lead to myocardial ischemia, transient dysrhythmias, and syncope. There are no other obvious explanations at this time to explain the patient's event he will continue his cardiac monitoring, medical therapy, and further evaluation. Again this will include repeat diagnostic cardiac catheterization which depending upon the findings may or may not lead to additional revascularization therapy. 4. Hyperlipidemia The patient will continue lipid-lowering therapy. 5. Hypertension The patient's blood pressure is being monitored. He will continue medical management and follow-up. Comment: The patient's case was discussed with the patient, his spouse, and Dr. Botello. This note was generated with [employer] dictation software. It may contain incorrect words, spelling, and punctuation that were not noted in checking the note before signing.
[2018-02-03] MEDS: DiphenhydrAMINE 25 MG Capsule 50 MG PO (20:41)
[2018-02-03] MEDS: predniSONE 20 MG Tablet 60 MG PO (20:41)
[2018-02-03] MEDS: TICAGRELOR 90 MG TABLET 180 MG PO (20:47)
[2018-02-03] MEDS: Atorvastatin Calcium 80 MG Tablet PO (22:04)
[2018-02-03] MEDS: Famotidine 20 MG Tablet PO (22:04)
[2018-02-03] MEDS: Metoprolol Tartrate 25 MG Tablet 12.5 MG PO (22:04)
[2018-02-03] MEDS: Heparin Injection (Vial) 5,000 UNIT/ML VIAL 5000 UNIT SC (22:04)
[2018-02-04] VITALS (37 sets, daily range): BP systolic 108–138; BP diastolic 61–95; PULSE 49–98; RESP 8–19; TEMP 36.7–37; O2SAT 93–98
[2018-02-04] MEDS: 0.9% Normal Saline 1,000 ML 150 ML IV (03:18)
[2018-02-04 05:07] LABS: Hematocrit 42.8 % (40-54); Hemoglobin 14.8 g/dl (13.0-16.5); Mean Corp Hgb Conc 34.6 g/gl (32-36); Mean Corpuscular Hgb 31.5 pg (27.0-32.0); Mean Corpuscular Volume 91.1 fL (80-94); Mean Platelet Vol. 10.1 fl (6.2-12.0); Platelet Count 244 K/mm3 (150-450); RBC Distribution Width CV 12.9 % (11.6-14.6); RBC Distribution Width SD 42.7 fl (35.1-43.9); White Blood Count 8.9 K/mm3 (4.4-11.0)
[2018-02-04 05:11] LABS: Scan Indicated on CBC? Y/N NO
[2018-02-04 05:17] LABS: International Normalized Ratio 1.1; Prothrombin Time (Protime)PT. 13.8 SECONDS (11.7-14.9)
[2018-02-04 05:18] LABS: Partial Thromboplast Time 34.9 Seconds (24.1-36.2)
[2018-02-04 05:30] LABS: Anion Gap 6 (5-15); BUN 13 mg/dL (7-18); BUN/Creat Ratio 14.5 RATIO (10-20); Calcium,Total 8.2 mg/dL (8.5-10.1); Chloride 110 mmol/L (98-107); Creatinine, Serum 0.89 mg/dL (0.70-1.30); EST Glomerular Filtration Rate 92 mL/min (>60); Est Glom Filt Rate - Afr Amer 111 mL/min (>60); Estimated Creatinine Clearance 88.26 ml/min; Glucose 167 mg/dL (74-106); Potassium 4.4 mmol/L (3.5-5.1); Sodium Level 142 mmol/L (136-145); Thyroid Stim Hormone (TSH) 0.49 uIU/mL (0.358-3.74)
--- NOTE | 2018-02-04 05:55 | EKG12_ITS ---
Test Reason : AM EKG Blood Pressure : / mmHG Vent. Rate : 059 BPM Atrial Rate : 059 BPM P-R Int : 182 ms QRS Dur : 096 ms QT Int : 392 ms P-R-T Axes : 051 019 063 degrees QTc Int : 388 ms Sinus bradycardia Nonspecific T wave abnormality Abnormal ECG Confirmed by AURA MARLOW, DANA ([id number]), image editor ASHLEY MENDES ([id number]) on 02/09/2018 2:52:12 PM Referred By: Gabriel Mendes Confirmed By:DANA CHAVARRIA MD
[2018-02-04] MEDS: Famotidine 20 MG Tablet PO ×2 (06:28→21:39)
[2018-02-04] MEDS: Losartan Potassium 50 MG Tablet PO (06:28)
[2018-02-04] MEDS: Aspirin E.C. 81 MG Tablet PO (06:28)
[2018-02-04] MEDS: TICAGRELOR 90 MG TABLET PO ×2 (06:28→21:39)
[2018-02-04] MEDS: Metoprolol Tartrate 25 MG Tablet 12.5 MG PO ×2 (06:28→21:39)
[2018-02-04] MEDS: predniSONE 20 MG Tablet 60 MG PO (08:16)
[2018-02-04] MEDS: DiphenhydrAMINE 25 MG Capsule 50 MG PO (08:17)
--- NOTE | 2018-02-04 09:41 | CASEMGMT ---
Addendum entered by Kajal Alena 02/04/18 09:46: Ref # from call to [employer]: [id number]. Morgan CONTRERAS CM Original Note: Pt to have heart cath today. Call to pt's insurance, [employer], to verify coverage for in-network tertiary facilities. Per automotive sales representative, pt has no in or out of network benefits and pt can go anywhere as long as they accept MCR allowable amount. Pt has no deductible and stay will be paid at 100% of the MCR allowable amount. Per automotive sales representative, as long as stay is pre-certed, it will be covered. Gianluca UM aware also at this time and states that [facility] precert department is working on getting inpatient stay pre-certed at this time. Morgan CONTRERAS CM
--- NOTE | 2018-02-04 11:08 | CL.I_ITS ---
Patient Name: CORWIN ANN Study Date: 02/04/2018 Performing: Alex Del Castillo MD Ht: 68.89 inches 175 cm : 1955 Wt: 220.46 lbs 100 kg Age: 62 Gender: male BSA: 2.15 PROCEDURE(S) PERFORMED [id number], CORONARY OR GRAFT, INITIAL VESSEL [id number] W OR WO PTCA, SINGLE CORONARY ARTERY [id number] W OR WO PTCA, EACH ADD'L ARTERY, SAME MAJOR CLINICAL PROFILE AND CO-MORBIDITIES Heart Failure: None CAD Presentations: Non-STEMI CONCLUSIONS IVUS ostial LAD showing 30-40% lesion with eccentric plaque Successful PCI Prox OM2 using Elunir 2.5x17 mm PHOEBE, post-dilated using 3.0 mm balloon Successful PCI Prox LPDA using Elunir 2.5x12 mm PHOEBE RECOMMENDATIONS ASA Indefinitley Brilinta for at least 12 months Follow up with Dr. Valle INTERVENTION INFORMATION LESION SITE: LAD (Ostial) PROCEDURE: IVUS for pre PCI assessment of vessel Lesion Devices: Cordis 6 Fr XB2.5 VBT 100cm Guide Catheter [place] Coronary IVUS Catheter Terumo .014 Runthrough Extra Floppy 180cm straight LESION SITE: 2nd OM (Proximal) Lesion Complexity: Non-High/Non-C, culprit lesion: Yes Pre intervention FLOR flow: 3 PROCEDURE: Drug Eluting Stent Post Stenosis: 0 % Post intervention FLOR flow: 3 Lesion Devices: Cordis 6 Fr XB2.5 VBT 100cm Guide Catheter Terumo .014 Runthrough Extra Floppy 180cm straight Cardinal Elunir PHOEBE RX 2.5x17 Neeraj Sci NC EMERGE MR 3.00x15 BALLOON LESION SITE: Lt PDA (Proximal) Lesion Complexity: Non-High/Non-C Pre Stenosis: 90 % Pre intervention FLOR flow: 3 PROCEDURE: Drug Eluting Stent 0 % Post intervention FLOR flow: 3 Lesion Devices: Cardinal Elunir PHOEBE RX 2.5x12 Neeraj Sci NC EMERGE MR 2.50x12 BALLOON COMPLICATIONS No Complications PROCEDURE MEDICATIONS Fentanyl 50 mcg IV Versed 1 mg IV Versed 1 mg IV Oxygen: 2 L/min via nasal cannula Heparin diluted in 23cc Heparinized saline. Patient given 10cc IA of this solution. 02/04/2018 08:48: 53 Heparin 8000 unit(s) IV 02/04/2018 09:46:04 Heparin 2000 unit(s) IV 02/04/2018 10:03:18 Heparin 2000 unit(s) IV 02/04/2018 10:34:02 Nitro 100 mcg IC 02/04/2018 09:56:10 Nitro 200 mcg IC 02/04/2018 10:14:28 Nitro 200 mcg IC 02/04/2018 10:32:34 Solu-medrol 125 mg IV 02/04/2018 08:34:38 Verapamil 2.5mg, Ntg 100mcgs, 2000 units of Heparin diluted in 23cc Heparinized saline. Patient give n 10cc IA of this solution. 02/04/2018 08:48:53 SUMMARY OF HEMODYNAMIC DATA Time AIR REST ECG 08:29:35 AO 116/73 (92) SA 08:52:57 LV 116/4, 15 09:29:43 LV 118/7, 19 09:29:50 LVp 115/7, 20 09:29:58 AOp 119/71 (92) 09:30:03 AO 138/96 (116) 10:31:32 Signed By Alex Del Castillo MD On 02/04/2018 11:07:45 Alex Del Castillo MD
[2018-02-04] MEDS: 0.9% Normal Saline 1,000 ML 100 ML IV (11:13)
[2018-02-04 13:10] LABS: ACT Activated Clotting Time 257 sec (74-137)
--- NOTE | 2018-02-04 14:12 | EEG ---
- Electroencephalogram Date of service: 02/04/18 History EEG is being done in this 62 yr M to rule out seizures EEG Description: This is an 18 channel EEG with 10-20 lead placement system. Bipolar montages, Referential and Circumferential montages were reviewed. Photic stimulation and Hyperventilation were performed. The posterior dominant background rhythm is 9 HZ synchronous, symmetric, reacting to eye opening and closing. Photo stimulation elicited normal driving response but no abnormal photoparoxysmal response, Hyperventilation did not elicit any abnormal photoparoxysmal response. EKG artifact noted during the record. Sleep was identified. There was no epileptiform discharges or electrographic seizures noted during this recording. EEG Interpretation This is a normal awake and asleep EEG. There is no epileptiform discharges or electrographic seizures noted during the record.
--- NOTE | 2018-02-04 14:58 | CRPHASE1_ITS ---
Patient Data/Charges Phase II Referral:: [facility] - FOLLOWING OFFICE VISIT WITH INCLUSION SPECIAL EDUCATION TEACHER Start Phase II:: FOLLOWING OFFICE VISIT WITH INCLUSION SPECIAL EDUCATION TEACHER Risk Factors/Lifestyle Smoking Status: Former smoker Hx Hypertension: Yes Hx Diabetes Mellitus Type 2: No Hx Metabolic Disorders: Yes Hx Dyslipidemia: Yes Hx Obesity: Yes Height: 5 ft 9 in - BMI 32.5 Stress: Home/Family Risk Factor for Sedentary Lifestyle: Moderate Risk Family History: Family History (Last Reviewed 12/24/17 @ 11:34 by Lashell Bird) Father CAD (coronary artery disease) Diabetes Myocardial infarction Mother Hypertension HLD (hyperlipidemia) Sister Hypertension Sister Asthma Sister Arthritis Family History: Diabetes, Heart Disease, Hypertension Past Cardiac Illness: Coronary Artery Disease, Myocardial Infarction Phase I Education Given On:: [place], Nutrition, Antiplatelet medication, Diabetes - Type II Issues Affecting Care:: None Knowledge of Condition:: Yes Learning Preferences: Verbal, Written Medical/Surgical History SD:: Yes - PAST SD CAD:: Yes Hypertension:: Yes Dyslipidemia:: Yes Discharge/Home/Social Eval Discharge Disposition: Home
--- NOTE | 2018-02-04 15:02 | CRPH1.INSTRU ---
General Education CAD and cardiac anatomy and function:: Patient communicates acknowledgment Explanation of diagnoses and procedures:: Patient communicates acknowledgment Sign/Symptoms of DC:: Patient communicates acknowledgment Antiplatelet therapy: Patient communicates acknowledgment Proper use of NTG-SL: Patient communicates acknowledgment Emergency procedures and activation of EMS: Patient communicates acknowledgment Compliance of all prescribed medications: Patient communicates acknowledgment Smoking Patient Nicotine/Smoking Risk Factors Are:: Non-smoker Recommendations Include:: Previous smoker; encourage continued cessation Nicotine/Smoking Response Code:: Patient communicates acknowledgment Dyslipidemia Patient Dyslipidemia Risk Factors Are:: Total Cholesterol, Triglycerides, HDL, LDL Recommendations Include:: Lipid profile provided, Reviewed NCEP/ATP guidelines, Therapeutic Lifestyle Change dietary guidelines Dyslipidemia Response Code:: Patient communicates acknowledgment Overweight/Obesity Patient Overweight/Obesity Risk Factors Are:: Obesity - > or = 30 Recommendations Include:: Weight loss of 5-10%, Reduced calorie diet, Exercise 5-7 times/week Overweight/Obesity:: Patient communicates acknowledgment Hypertension Recommendations Include:: Maintain BP <130/85, DASH dietary guidelines, Decrease/maintain normal body weight, Moderation of ETOH Hypertension:: Patient communicates acknowledgment Heart Disease Patient Heart Disease Risk Factors Are:: Family history of heart disease < 65 years old, Previous cardiac event Heart Disease Response Code:: Patient communicates acknowledgment Diabetes Patient Diabetes Risk Factors Are:: No documented hx of diabetes Metabolic Syndrome Patient Metabolic Syndrome Risk Factors Are [3 of 5]:: Waist circumference > 35 [female] or 40 [male], High triglyceride >150, Hypertension, Low HDL <40 [male] or < 50 [female] Recommendations Include:: Reinforce compliance to risk factor modifications, Encouraged follow-up with Primary Care Physician Metabolic Syndrome Response Code:: Patient communicates acknowledgment Sedentary Patient Sedentary Risk Factors Are:: Lack of regular exercise Recommendations Include:: Aerobic exercise 5-7 times/week for 20-30 minutes continuously, Benefits of regular exercise, Discussed home walking program, Monitored Outpatient Cardiac Rehab Sedentary Response Code:: Patient communicates acknowledgment Stress Recommendations Include:: Identification of stressors, and assessment of coping skills, Stress management techniques Stress Response Code:: Patient communicates acknowledgment
[2018-02-04 17:32] LABS: M R Staph aureus DNA By PCR Negative (Negative); Probe Check PASS; Specimen Processing Control PASS
--- NOTE | 2018-02-04 17:51 | PCM.PN.CARD ---
Subjectve: The patient was evaluated earlier today. He denied any chest pain or dyspnea or near syncope / syncope. He is now s/p further evaluation with diagnostic cardiac cath and subsequent PCI of the OM and LPDA system. Objective: Vital Signs Temp Pulse Resp BP Pulse Ox 98.2 F 63 14 113/78 95 02/04/18 16:00 02/04/18 17:00 02/04/18 17:00 02/04/18 17:00 02/04/18 17:00 Oxygen Flow Rate (L/min) 2 Oxygen Delivery Method Room Air Weight: 220 lb 0.341 oz Intake and Output for Last 24 Hours 02/02/18 02/03/18 02/04/18 23:59 23:59 23:59 Intake Total 1446 1603 / 1603 Output Total 300 / 300 Balance 1446 1303 / 1303 General: Awake, Alert, Oriented x 3, Cooperative HEENT: Atraumatic, Normocephalic, PERRL, EOMI Oral: Moist Mucosa Neck: Supple, Good ROM, No JVD Lungs: Clear to auscultation Cardiovascular: Regular Rhythm, Premature Ectopic Beats, Normal S1, Normal S2 Vascular: Normal Radial Pulses Abdomen: Bowel Sounds Present, Soft, Non Tender Extremities: No Cyanosis, No Clubbing, No edema Neurological: No Focal Motor or Sensory Deficit 02/03/18 21:29: Troponin I 0.384 H 02/04/18 04:58: WBC 8.9, RBC 4.70, Hgb 14.8, Hct 42.8, MCV 91.1, MCH 31.5, MCHC 34.6, RDW 12.9, RDW Differential 42.7, Plt Count 244, MPV 10.1 02/04/18 04:58: Sodium 142, Potassium 4.4, Chloride 110 H, Carbon Dioxide 26.0, Anion Gap 6, BUN 13, Creatinine 0.89, Est GFR (MDRD) Af Amer 111, Est GFR (MDRD) Non-Af 92, BUN/Creatinine Ratio 14.5, Glucose 167 H, Calcium 8.2 L 02/04/18 04:58: PT 13.8, INR 1.1, APTT 34.9 Rhythm: sinus rhythm; PVCs Cardiac Cath: please see official report PCI: please see official report Medical Necessity - Tobacco Use Smoking Status: Former smoker Assessment/Plan 1. Syncope The patient had a syncopal event. The etiology is unclear. From a cardiac standpoint he does have underlying cardiovascular disease and now has been found to have abnormal cardiac as well as abnormal troponin I levels. This would raise the concern of the possibility of progression of CAD which could lead to myocardial ischemia which could lead to transient dysrhythmias and subsequent syncope. The patient has been evaluated for other etiologies including a primary COOK DINNER event. This appears to be negative at this time. No report of any obvious classic seizure like activity with tremulous body motion. However he may still be evaluated for this. Other possible etiologies may include thromboembolic disease such as pulmonary emboli. The patient did have a trip to [place] approximately 3-4 weeks ago. He states he drove to [place] and back in his RV. He states he had frequent stops based upon needing to let his dogs out of the vehicle. He denies any concerning lower extremity discomfort, erythema, edema, etc. since returning from his trip. He has undergone evaluation with diagnostic cardiac cath. He was found to have angiographically significant CAD of the OM and LPDA system. He is now s/p PCI/PHOEBE to the OM and LPDA system. He will continue cardiovascular medical therapy as deemed appropriate. 2. Non-ST segment elevation [place] He does have abnormal troponin I levels concerning for an acute non-ST segment elevation [place]. Thus far there is no other definitive explanation for his troponin I levels. He has undergone evaluation and care as noted above. 3. CAD status post previous PTCA/PHOEBE to the LAD, diagonal branch, and LCx The patient will continue current medical therapy and follow up. 4. Hyperlipidemia The patient will continue lipid-lowering therapy. 5. Hypertension The patient's blood pressure is being monitored. He will continue medical management and follow-up. Comment: The patient's case was discussed with the patient, his spouse, and Dr. Botello. This note was generated with [employer]™ Interactive dictation software. It may contain incorrect words, spelling, and punctuation that were not noted in checking the note before signing.
--- NOTE | 2018-02-04 18:02 | PN.CARD_ITS ---
Subjectve: The patient was evaluated earlier today. He denied any chest pain or dyspnea or near syncope / syncope. He is now s/p further evaluation with diagnostic cardiac cath and subsequent PCI of the OM and LPDA system. Objective: Vital Signs Temp Pulse Resp BP Pulse Ox 98.2 F 63 14 113/78 95 02/04/18 16:00 02/04/18 17:00 02/04/18 17:00 02/04/18 17:00 02/04/18 17:00 Oxygen Flow Rate (L/min) 2 Oxygen Delivery Method Room Air Weight: 220 lb 0.341 oz Intake and Output for Last 24 Hours 02/02/18 02/03/18 02/04/18 23:59 23:59 23:59 Intake Total 1446 1603 / 1603 Output Total 300 / 300 Balance 1446 1303 / 1303 General: Awake, Alert, Oriented x 3, Cooperative HEENT: Atraumatic, Normocephalic, PERRL, EOMI Oral: Moist Mucosa Neck: Supple, Good ROM, No JVD Lungs: Clear to auscultation Cardiovascular: Regular Rhythm, Premature Ectopic Beats, Normal S1, Normal S2 Vascular: Normal Radial Pulses Abdomen: Bowel Sounds Present, Soft, Non Tender Extremities: No Cyanosis, No Clubbing, No edema Neurological: No Focal Motor or Sensory Deficit 02/03/18 21:29: Troponin I 0.384 H 02/04/18 04:58: WBC 8.9, RBC 4.70, Hgb 14.8, Hct 42.8, MCV 91.1, MCH 31.5, MCHC 34.6, RDW 12.9, RDW Differential 42.7, Plt Count 244, MPV 10.1 02/04/18 04:58: Sodium 142, Potassium 4.4, Chloride 110 H, Carbon Dioxide 26.0, Anion Gap 6, BUN 13, Creatinine 0.89, Est GFR (MDRD) Af Amer 111, Est GFR (MDRD ) Non-Af 92, BUN/Creatinine Ratio 14.5, Glucose 167 H, Calcium 8.2 L 02/04/18 04:58: PT 13.8, INR 1.1, APTT 34.9 Rhythm: sinus rhythm; PVCs Cardiac Cath: please see official report PCI: please see official report Medical Necessity - Tobacco Use Smoking Status: Former smoker Assessment/Plan 1. Syncope The patient had a syncopal event. The etiology is unclear. From a cardiac standpoint he does have underlying cardiovascular disease and now has been found to have abnormal cardiac as well as abnormal troponin I levels. This would raise the concern of the possibility of progression of CAD which could lead to myocardial ischemia which could lead to transient dysrhythmias and subsequent syncope. The patient has been evaluated for other etiologies including a primary [employer] event. This appears to be negative at this time. No report of any obvious classic seizure like activity with tremulous body motion. However he may still be evaluated for this. Other possible etiologies may include thromboembolic disease such as pulmonary emboli. The patient did have a trip to [place] approximately 3-4 weeks ago. He states he drove to [place] and back in his RV. He states he had frequent stops based upon needing to let his dogs out of the vehicle. He denies any concerning lower extremity discomfort, erythema, edema, etc. since returning from his trip. He has undergone evaluation with diagnostic cardiac cath. He was found to have angiographically significant CAD of the OM and LPDA system. He is now s/p PCI/ PHOEBE to the OM and LPDA system. He will continue cardiovascular medical therapy as deemed appropriate. 2. Non-ST segment elevation [place] He does have abnormal troponin I levels concerning for an acute non-ST segment elevation [place]. Thus far there is no other definitive explanation for his troponin I levels. He has undergone evaluation and care as noted above. 3. CAD status post previous PTCA/PHOEBE to the LAD, diagonal branch, and LCx The patient will continue current medical therapy and follow up. 4. Hyperlipidemia The patient will continue lipid-lowering therapy. 5. Hypertension The patient's blood pressure is being monitored. He will continue medical management and follow-up. Comment: The patient's case was discussed with the patient, his spouse, and Dr. Botello. This note was generated with [employer] dictation software. It may contain incorrect words, spelling, and punctuation that were not noted in checking the note before signing.
--- NOTE | 2018-02-04 19:02 | CL.D_ITS ---
Patient Name: CORWIN ANN Study Date: 02/04/2018 Performing: Mustapha Valle MD Ht: 69 inches 175 cm : 1955 Wt: 220.8 lbs 100 kg Age: 62 Gender: male BSA: 2.15 PROCEDURE(S) PERFORMED [id number], CORONARY OR GRAFT, INITIAL VESSEL [id number] W OR WO PTCA, SINGLE CORONARY ARTERY [id number] W OR WO PTCA, EACH ADD'L ARTERY, SAME MAJOR CLINICAL PROFILE AND INDICATIONS Indications: ACS <= 24 hrs, Syncope Heart Failure: None Stress/Imaging Stress/Image Study Performed: No Angina Classification Anginal Classification w/in 2 Weeks: No symptoms CAD Presentations: Non-STEMI Other: Syncope CONCLUSIONS Elevated Left Ventricular End Diastolic Pressure [place] Multivessel CAD RECOMMENDATIONS Medical therapy Referred for LAD IVUS and possible OM and LPDA PCI DESCRIPTION OF PROCEDURE The patient arrived to the procedure lab. The risks and benefits of the procedure as well as a full d escription of our services here and current unavailability of surgical backup were fully explained to the patient and/or their significant other prior to the catheterization. The Timeout was completed, verifying the correct patient and procedure. The patient's procedural site was prepped and draped in the usual fashion. Local anesthetic was given subcutaneously to right radial region with Lidocaine 2% . Using a modified Seldinger technique, arterial access was obtained via the right radial artery, a 6 Fr sheath was inserted. Left Coronary Artery selective angiography was performed in multiple views u sing a 5 Fr. 4.0 [place] catheter. Right Coronary Artery selective angiography was then performed in mu ltiple views using a 5 Fr. 4.0 Lincoln catheter. Left Coronary Artery selective angiography was perform ed in multiple views using a 6 Fr. JL4 guide catheter. LV to AO pullback pressures were then recorded . Left Coronary Artery selective angiography was performed in multiple views using a 6 Fr. XB 2.5 JULIETTE DE CATHETER.The arterial sheath was pulled and a TR Band was applied for hemostasis-16 cc air CORONARY ANGIOGRAPHY DOMINANCE: Right Dominant LEFT HEART ASSESSMENT Left Ventricular Ejection Fraction: Not assessed Elevated Left Ventricular End Diastolic Pressure LVEDP: 15 mmHg LEFT MAIN: Absent LEFT ANTERIOR DECENDING ARTERY: Mild luminal irregularities OSTIAL LAD: Eccentric: 25-50 % Stenosis MID LAD: Previously placed stent is patent DIAGONAL 1: Proximal - Previously placed stent is patent CIRCUMFLEX ARTERY: PROX CIRC: Eccentric: 25 % Stenosis MID CIRC: Mild luminal irregularities OM 1: Proximal - Eccentric: 85 % Stenosis LT PDA: Left PDA: Proximal - Eccentric: 85 % Stenosis RIGHT CORONARY ARTERY: Mild luminal irregularities COMPLICATIONS No Complications PROCEDURE MEDICATIONS Fentanyl 50 mcg IV Versed 1 mg IV Versed 1 mg IV Oxygen: 2 L/min via nasal cannula Heparin diluted in 23cc Heparinized saline. Patient given 10cc IA of this solution. 02/04/2018 08:48: 53 Heparin 8000 unit(s) IV 02/04/2018 09:46:04 Heparin 2000 unit(s) IV 02/04/2018 10:03:18 Heparin 2000 unit(s) IV 02/04/2018 10:34:02 Nitro 100 mcg IC 02/04/2018 09:56:10 Nitro 200 mcg IC 02/04/2018 10:14:28 Nitro 200 mcg IC 02/04/2018 10:32:34 Solu-medrol 125 mg IV 02/04/2018 08:34:38 Verapamil 2.5mg, Ntg 100mcgs, 2000 units of Heparin diluted in 23cc Heparinized saline. Patient give n 10cc IA of this solution. 02/04/2018 08:48:53 SUMMARY OF HEMODYNAMIC DATA Time AIR REST ECG 08:29:35 AO 116/73 (92) SA 08:52:57 LV 116/4, 15 09:29:43 LV 118/7, 19 09:29:50 LVp 115/7, 20 09:29:58 AOp 119/71 (92) 09:30:03 AO 138/96 (116) 10:31:32 Signed By Mustapha Valle MD On 02/04/2018 19:02:07 Mustapha Valle MD
--- NOTE | 2018-02-04 19:16 | PCM.PROGNOTE ---
Patient Problems: Active and Suspected Problems (Last Updated 02/04/18 @ 13:10 by ELVIA Puckett) Syncope (Acute) Syncope (Acute) NSTEMI (non-ST elevated myocardial infarction) (Acute) - Physical Exam General: Lethargic, - - Sedated. HEENT: Atraumatic, PERRLA Oral: Moist Mucosa, - - ET in place. Neck: Supple, No JVD Lungs: Diminished Cardiovascular: Regular rate, Regular Rhythm, Normal S1, Normal S2, No murmurs Abdomen: Bowel Sounds Present, Hypoactive Bowel Sounds, Distended, Obese Extremities: No clubbing, No cyanosis, No edema Skin: No rashes, No breakdown Musculoskeletal: No Tenderness to Palpation of Joints or Extremities Lymphatic: No Cervical, Supraclavicular, or Inguinal Adenopathy Neurological: Cranial nerves II-XII grossly intact Psych/Mental Status: - - Sedated. Vital Signs Temp Pulse Resp BP Pulse Ox 98.2 F 59 L 15 117/69 93 02/04/18 16:00 02/04/18 18:00 02/04/18 18:00 02/04/18 18:00 02/04/18 18:00 Oxygen Flow Rate (L/min) 2 Oxygen Delivery Method Room Air Weight: 220 lb 0.341 oz Intake and Output for Last 24 Hours 02/02/18 02/03/18 02/04/18 23:59 23:59 23:59 Intake Total 1446 2633 / 2633 Output Total 300 / 300 Balance 1446 2333 / 2333 Laboratory Tests Past 24 Hrs 02/03/18 02/04/18 02/04/18 21:29 04:58 04:58 WBC 8.9 RBC 4.70 Hgb 14.8 Hct 42.8 MCV 91.1 MCH 31.5 MCHC 34.6 RDW 12.9 RDW Differential 42.7 Plt Count 244 MPV 10.1 PT INR APTT Activated Clotting Time Sodium 142 Potassium 4.4 Chloride 110 H Carbon Dioxide 26.0 Anion Gap 6 BUN 13 Creatinine 0.89 Estim Creat Clear Calc 88.26 Est GFR (MDRD) Af Amer 111 Est GFR (MDRD) Non-Af 92 BUN/Creatinine Ratio 14.5 Glucose 167 H Calcium 8.2 L Troponin I 0.384 H TSH 0.49 MRSA (PCR) 02/04/18 02/04/18 02/04/18 04:58 10:41 16:16 WBC RBC Hgb Hct MCV MCH MCHC RDW RDW Differential Plt Count MPV PT 13.8 INR 1.1 APTT 34.9 Activated Clotting Time 257 H Sodium Potassium Chloride Carbon Dioxide Anion Gap BUN Creatinine Estim Creat Clear Calc Est GFR (MDRD) Af Amer Est GFR (MDRD) Non-Af BUN/Creatinine Ratio Glucose Calcium Troponin I TSH MRSA (PCR) Negative Medical Necessity - Tobacco Use Smoking Status: Former smoker Assessment/Plan Active and Suspected Problems (Last Updated 02/04/18 @ 13:10 by ELVIA Puckett) Syncope (Acute) Syncope (Acute) NSTEMI (non-ST elevated myocardial infarction) (Acute)
--- NOTE | 2018-02-04 19:20 | PCM.PROGNOTE ---
Patient Problems: Active and Suspected Problems (Last Updated 02/04/18 @ 13:10 by ELVIA Puckett) Syncope (Acute) Syncope (Acute) NSTEMI (non-ST elevated myocardial infarction) (Acute) Subjective: S/P cardiac cath, stent to OM and LPDA with PHOEBE. He feels well, no complains. - Physical Exam General: Alert, Oriented x3, Cooperative HEENT: Atraumatic, PERRLA Oral: Moist Mucosa, No Gingival or Mucosal Lesions/ Ulcerations Neck: Supple, No JVD Lungs: Clear to auscultation, Normal air movement, No rhonchi, No wheeze, No rales Cardiovascular: Regular rate, Regular Rhythm, Normal S1, Normal S2, No murmurs, No Ectopic Activity Abdomen: Bowel Sounds Present, Soft, Non Tender, Non-Distended, No Hepato-splenomegaly Extremities: No clubbing, No cyanosis, No edema Skin: No rashes, No breakdown Musculoskeletal: No Tenderness to Palpation of Joints or Extremities, No Muscle Wasting Lymphatic: No Cervical, Supraclavicular, or Inguinal Adenopathy Neurological: Cranial nerves II-XII grossly intact, Neuro grossly intact Psych/Mental Status: Normal Affect Vital Signs Temp Pulse Resp BP Pulse Ox 98.2 F 59 L 15 117/69 93 02/04/18 16:00 02/04/18 18:00 02/04/18 18:00 02/04/18 18:00 02/04/18 18:00 Oxygen Flow Rate (L/min) 2 Oxygen Delivery Method Room Air Weight: 220 lb 0.341 oz Intake and Output for Last 24 Hours 02/02/18 02/03/18 02/04/18 23:59 23:59 23:59 Intake Total 1446 2633 / 2633 Output Total 300 / 300 Balance 1446 2333 / 2333 Laboratory Tests Past 24 Hrs 02/03/18 02/04/18 02/04/18 21:29 04:58 04:58 WBC 8.9 RBC 4.70 Hgb 14.8 Hct 42.8 MCV 91.1 MCH 31.5 MCHC 34.6 RDW 12.9 RDW Differential 42.7 Plt Count 244 MPV 10.1 PT INR APTT Activated Clotting Time Sodium 142 Potassium 4.4 Chloride 110 H Carbon Dioxide 26.0 Anion Gap 6 BUN 13 Creatinine 0.89 Estim Creat Clear Calc 88.26 Est GFR (MDRD) Af Amer 111 Est GFR (MDRD) Non-Af 92 BUN/Creatinine Ratio 14.5 Glucose 167 H Calcium 8.2 L Troponin I 0.384 H TSH 0.49 MRSA (PCR) 02/04/18 02/04/18 02/04/18 04:58 10:41 16:16 WBC RBC Hgb Hct MCV MCH MCHC RDW RDW Differential Plt Count MPV PT 13.8 INR 1.1 APTT 34.9 Activated Clotting Time 257 H Sodium Potassium Chloride Carbon Dioxide Anion Gap BUN Creatinine Estim Creat Clear Calc Est GFR (MDRD) Af Amer Est GFR (MDRD) Non-Af BUN/Creatinine Ratio Glucose Calcium Troponin I TSH MRSA (PCR) Negative Diagnostic Data Chest X-Ray 02/03/18 09:21 IMPRESSION: Normal x-ray examination of the chest. Electronically Signed: Hitesh Solis MD at 9:51 EDT Tel [phone], Service support , Brain CT 02/03/18 09:24 IMPRESSION: Normal unenhanced CT scan of the brain. Electronically Signed: Hitesh Solis MD at 9:52 EDT Tel [phone], Service support , Medical Necessity - Tobacco Use Smoking Status: Former smoker Assessment/Plan Active and Suspected Problems (Last Updated 02/04/18 @ 13:10 by ELVIA Puckett) Syncope (Acute) Syncope (Acute) NSTEMI (non-ST elevated myocardial infarction) (Acute) Patient is a 63 years old male who presents with an episode of syncope, admitted on 02/03/18. He was at work this morning, doing some desk job. He suddenly felt funny with blurred vision. 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 He was diaphoretic after he woke up, but did not think he had chest pain. He did not have significant problems with dizziness, or visual change with darkening / white-out following blurred vision. He has no previous history of seizure disorder, although he had accident with bladder incontinence. Loss of consciousness itself was unwitnessed. He has history of coronary artery disease, had stent placement in 2009. He reports good normal function recently without any symptoms of angina. Initial troponin was normal, and EKG showed normal sinus rhythm with occasional PAC. Later, his troponin was elevated to 0.329. Cardiac cath was done, showing: LEFT MAIN: Absent LEFT ANTERIOR DECENDING ARTERY: Mild luminal irregularities OSTIAL LAD: Eccentric: 25-50 % Stenosis MID LAD: Previously placed stent is patent DIAGONAL 1: Proximal - Previously placed stent is patent CIRCUMFLEX ARTERY: PROX CIRC: Eccentric: 25 % Stenosis MID CIRC: Mild luminal irregularities OM 1: Proximal - Eccentric: 85 % Stenosis LT PDA: Left PDA: Proximal - Eccentric: 85 % Stenosis RIGHT CORONARY ARTERY: Mild luminal irregularities #1 Syncope. Troponin was been elevating. Continue to trend. Etiology is not clear. Possibly due to ACS, or he may have episodes of tachyarrhythmia that causes syncopal episode and demand-mismatch. He is chest pain free. Because of unwitnessed syncope and incontinence, EEG was done, which was normal. He underwent cardiac cath, found to have significant stenosis at OM1 and LPDA, PHOEBE placed. (02/04) Discussed with Dr. Valle. Concerning of malignant arrhythmia as underling problems lead to NSTEMI. Continue to monitor with Telemetry. Consider 30 days event monitor as outpatient also. #2 NSTEMI. See above. #3 History of coronary artery disease. S/P stent in 2009. Cath repeated on 02/04, PHOEBE placed to OM1 and LPDA. #4 Essential hypertension. Continue losartan. VTE prophylaxis: heparin SQ. GI prophylaxis: H2 gifty po. Patient is full code. Disposition: Home in 1 to 2 days Code Visit Inpatient E&M: 77385 Subs Hosp L3
--- NOTE | 2018-02-04 19:28 | PN_ITS ---
Patient Problems: Active and Suspected Problems (Last Updated 02/04/18 @ 13:10 by ELVIA Puckett) Syncope (Acute) Syncope (Acute) NSTEMI (non-ST elevated myocardial infarction) (Acute) Subjective: S/P cardiac cath, stent to OM and LPDA with PHOEBE. He feels well, no complains. - Physical Exam General: Alert, Oriented x3, Cooperative HEENT: Atraumatic, PERRLA Oral: Moist Mucosa, No Gingival or Mucosal Lesions/ Ulcerations Neck: Supple, No JVD Lungs: Clear to auscultation, Normal air movement, No rhonchi, No wheeze, No rales Cardiovascular: Regular rate, Regular Rhythm, Normal S1, Normal S2, No murmurs, No Ectopic Activity Abdomen: Bowel Sounds Present, Soft, Non Tender, Non-Distended, No Hepato- splenomegaly Extremities: No clubbing, No cyanosis, No edema Skin: No rashes, No breakdown Musculoskeletal: No Tenderness to Palpation of Joints or Extremities, No Muscle Wasting Lymphatic: No Cervical, Supraclavicular, or Inguinal Adenopathy Neurological: Cranial nerves II-XII grossly intact, Neuro grossly intact Psych/Mental Status: Normal Affect Vital Signs Temp Pulse Resp BP Pulse Ox 98.2 F 59 L 15 117/69 93 02/04/18 16:00 02/04/18 18:00 02/04/18 18:00 02/04/18 18:00 02/04/18 18:00 Oxygen Flow Rate (L/min) 2 Oxygen Delivery Method Room Air Weight: 220 lb 0.341 oz Intake and Output for Last 24 Hours 02/02/18 02/03/18 02/04/18 23:59 23:59 23:59 Intake Total 1446 2633 / 2633 Output Total 300 / 300 Balance 1446 2333 / 2333 Laboratory Tests Past 24 Hrs 02/03/18 02/04/18 02/04/18 21:29 04:58 04:58 WBC 8.9 RBC 4.70 Hgb 14.8 Hct 42.8 MCV 91.1 MCH 31.5 MCHC 34.6 RDW 12.9 RDW Differential 42.7 Plt Count 244 MPV 10.1 PT INR APTT Activated Clotting Time Sodium 142 Potassium 4.4 Chloride 110 H Carbon Dioxide 26.0 Anion Gap 6 BUN 13 Creatinine 0.89 Estim Creat Clear Calc 88.26 Est GFR (MDRD) Af Amer 111 Est GFR (MDRD) Non-Af 92 BUN/Creatinine Ratio 14.5 Glucose 167 H Calcium 8.2 L Troponin I 0.384 H TSH 0.49 MRSA (PCR) 02/04/18 02/04/18 02/04/18 04:58 10:41 16:16 WBC RBC Hgb Hct MCV MCH MCHC RDW RDW Differential Plt Count MPV PT 13.8 INR 1.1 APTT 34.9 Activated Clotting Time 257 H Sodium Potassium Chloride Carbon Dioxide Anion Gap BUN Creatinine Estim Creat Clear Calc Est GFR (MDRD) Af Amer Est GFR (MDRD) Non-Af BUN/Creatinine Ratio Glucose Calcium Troponin I TSH MRSA (PCR) Negative Diagnostic Data Chest X-Ray 02/03/18 09:21 IMPRESSION: Normal x-ray examination of the chest. Electronically Signed: Hitesh Solis MD at 9:51 EDT Tel [phone], Service support , Brain CT 02/03/18 09:24 IMPRESSION: Normal unenhanced CT scan of the brain. Electronically Signed: Hitesh Solis MD at 9:52 EDT Tel [phone], Service support , Medical Necessity - Tobacco Use Smoking Status: Former smoker Assessment/Plan Active and Suspected Problems (Last Updated 02/04/18 @ 13:10 by ELVIA Puckett) Syncope (Acute) Syncope (Acute) NSTEMI (non-ST elevated myocardial infarction) (Acute) Patient is a 63 years old male who presents with an episode of syncope , admitted on 02/03/18. He was at work this morning, doing some desk job. He suddenly felt ?funny? with blurred vision. 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 He was diaphoretic after he woke up, but did not think he had chest pain. He did not have significant problems with dizziness, or visual change with darkening / ?white-out? following blurred vision. He has no previous history of seizure disorder, although he had accident with bladder incontinence. Loss of consciousness itself was unwitnessed. He has history of coronary artery disease, had stent placement in 2009. He reports good normal function recently without any symptoms of angina. Initial troponin was normal, and EKG showed normal sinus rhythm with occasional PAC. Later, his troponin was elevated to 0.329. Cardiac cath was done, showing: LEFT MAIN: Absent LEFT ANTERIOR DECENDING ARTERY: Mild luminal irregularities OSTIAL LAD: Eccentric: 25-50 % Stenosis MID LAD: Previously placed stent is patent DIAGONAL 1: Proximal - Previously placed stent is patent CIRCUMFLEX ARTERY: PROX CIRC: Eccentric: 25 % Stenosis MID CIRC: Mild luminal irregularities OM 1: Proximal - Eccentric: 85 % Stenosis LT PDA: Left PDA: Proximal - Eccentric: 85 % Stenosis RIGHT CORONARY ARTERY: Mild luminal irregularities #1 Syncope. Troponin was been elevating. Continue to trend. Etiology is not clear. Possibly due to ACS, or he may have episodes of tachyarrhythmia that causes syncopal episode and demand-mismatch. He is chest pain free. Because of unwitnessed syncope and incontinence, EEG was done, which was normal. He underwent cardiac cath, found to have significant stenosis at OM1 and LPDA, PHOEBE placed. (02/04) Discussed with Dr. Valle. Concerning of malignant arrhythmia as underling problems lead to NSTEMI. Continue to monitor with Telemetry. Consider 30 days event monitor as outpatient also. #2 NSTEMI. See above. #3 History of coronary artery disease. S/P stent in 2009. Cath repeated on 02/04, PHOEBE placed to OM1 and LPDA. #4 Essential hypertension. Continue losartan. VTE prophylaxis: heparin SQ. GI prophylaxis: H2 gifty po. Patient is full code. Disposition: Home in 1 to 2 days Code Visit Inpatient E&M: 67398 Subs Hosp L3
[2018-02-04] MEDS: Atorvastatin Calcium 80 MG Tablet PO (21:39)
[2018-02-05] VITALS (15 sets, daily range): BP systolic 86–138; BP diastolic 40–82; PULSE 56–94; RESP 13–24; TEMP 36.8–37.2; O2SAT 93–97
[2018-02-05] MEDS: 0.9% Normal Saline 500 ML IV.SOLN. IV (01:07)
[2018-02-05 05:51] LABS: Hemoglobin 13.5 g/dl (13.0-16.5); Mean Corp Hgb Conc 34.6 g/gl (32-36); Mean Corpuscular Hgb 31.5 pg (27.0-32.0); Mean Corpuscular Volume 91.1 fL (80-94); Mean Platelet Vol. 10.3 fl (6.2-12.0); Platelet Count 244 K/mm3 (150-450); RBC Distribution Width CV 13.2 % (11.6-14.6); Red Blood Count 4.28 M/mm3 (4.6-6.2); White Blood Count 19.5 K/mm3 (4.4-11.0)
[2018-02-05 05:54] LABS: Scan Indicated on CBC? Y/N NO
[2018-02-05 06:19] LABS: Anion Gap 10 (5-15); BUN 17 mg/dL (7-18); BUN/Creat Ratio 20.4 RATIO (10-20); Calcium,Total 8.1 mg/dL (8.5-10.1); Chloride 110 mmol/L (98-107); Creatinine, Serum 0.83 mg/dL (0.70-1.30); EST Glomerular Filtration Rate 100 mL/min (>60); Est Glom Filt Rate - Afr Amer 121 mL/min (>60); Estimated Creatinine Clearance 94.65 ml/min; Glucose 137 mg/dL (74-106); Potassium 3.9 mmol/L (3.5-5.1); Sodium Level 142 mmol/L (136-145)
--- NOTE | 2018-02-05 08:39 | PCM.PN.CARD ---
Subjectve: The patient is awake and alert. He has no new acute complaints this morning. Objective: Vital Signs Temp Pulse Resp BP Pulse Ox 98.2 F 56 L 18 138/78 H 94 02/05/18 03:59 02/05/18 08:00 02/05/18 08:00 02/05/18 08:00 02/05/18 08:00 Oxygen Flow Rate (L/min) 2 Oxygen Delivery Method Room Air Weight: 203 lb 14.841 oz Intake and Output for Last 24 Hours 02/03/18 02/04/18 02/05/18 23:59 23:59 23:59 Intake Total 1446 3204 / 3204 740 / 740 Output Total 1000 / 1000 600 / 600 Balance 1446 2204 / 2204 140 / 140 General: Awake, Alert, Oriented x 3, Cooperative, No Acute Distress Neck: No JVD Lungs: Clear to auscultation Cardiovascular: Regular Rhythm, Premature Ectopic Beats, Normal S1, Normal S2 Vascular: Normal Radial Pulses Abdomen: Bowel Sounds Present, Soft, Non Tender Extremities: No Cyanosis, No Clubbing, No edema Neurological: No Focal Motor or Sensory Deficit 02/05/18 05:35: WBC 19.5 H, RBC 4.28 L, Hgb 13.5, Hct 39.0 L, MCV 91.1, MCH 31.5, MCHC 34.6, RDW 13.2, RDW Differential 43.0, Plt Count 244, MPV 10.3 02/05/18 05:35: Sodium 142, Potassium 3.9, Chloride 110 H, Carbon Dioxide 22.0, Anion Gap 10, BUN 17, Creatinine 0.83, Est GFR (MDRD) Af Amer 121, Est GFR (MDRD) Non-Af 100, BUN/Creatinine Ratio 20.4 H, Glucose 137 H, Calcium 8.1 L Rhythm: This rhythm; occasional PVCs EKG: Sinus rhythm; sinus bradycardia Medical Necessity - Tobacco Use Smoking Status: Former smoker Assessment/Plan 1. Syncope The patient had a syncopal event. The etiology is unclear. From a cardiac standpoint he does have underlying cardiovascular disease and now has been found to have abnormal cardiac as well as abnormal troponin I levels. This would raise the concern of the possibility of progression of CAD which could lead to myocardial ischemia which could lead to transient dysrhythmias and subsequent syncope. The patient has been evaluated for other etiologies including a primary ACID RETORT OPERATOR event. This appears to be negative at this time. No report of any obvious classic seizure like activity with tremulous body motion. However he may still be evaluated for this. Other possible etiologies may include thromboembolic disease such as pulmonary emboli. The patient did have a trip to [place] approximately 3-4 weeks ago. He states he drove to [place] and back in his RV. He states he had frequent stops based upon needing to let his dogs out of the vehicle. He denies any concerning lower extremity discomfort, erythema, edema, etc. since returning from his trip. He has undergone evaluation with diagnostic cardiac cath. He was found to have angiographically significant CAD of the OM and LPDA system. He is now s/p PCI/PHOEBE to the OM and LPDA system. He will continue cardiovascular medical therapy as deemed appropriate. 2. Non-ST segment elevation [place] He does have abnormal troponin I levels concerning for an acute non-ST segment elevation [place]. Thus far there is no other definitive explanation for his troponin I levels. He has undergone evaluation and care as noted above. He will continue medical management. Ideally this would include his aspirin, antiplatelets, nitrates as needed, beta-blockers, afterload reducing agents, lipid-lowering agents, etc. He has been on beta-blockers in the past. In the past his dose was reduced and discontinued secondary to concerns of sinus bradycardia. Has been restarted on low-dose beta blockers with monitoring of his rate and rhythm. It would not be unreasonable to reattempt low-dose beta-blockers in light of his recent event and findings. However if he develops concerning bradycardia and/or associated symptoms than the dose may need to be further decreased or discontinued altogether. 3. CAD status post previous PTCA/PHOEBE to the LAD, diagonal branch, and LCx The patient will continue current medical therapy and follow up. 4. Hyperlipidemia The patient will continue lipid-lowering therapy. 5. Hypertension The patient's blood pressure is being monitored. He will continue medical management and follow-up. Overall, at the present time, the patient will continue medical management as tolerated. As long as the patient appears to remain symptomatically and hemodynamically stable and appears that he can be released home for continued outpatient cardiovascular follow-up. This may include outpatient 30 day ambulatory event monitor to continue to monitor his rate and rhythm on his medications and for any other associated concerns that may have contributed to his recent event. Comment: The patient's case was discussed with the patient. This note was generated with [employer] dictation software. It may contain incorrect words, spelling, and punctuation that were not noted in checking the note before signing.
--- NOTE | 2018-02-05 08:44 | PN.CARD_ITS ---
Subjectve: The patient is awake and alert. He has no new acute complaints this morning. Objective: Vital Signs Temp Pulse Resp BP Pulse Ox 98.2 F 56 L 18 138/78 H 94 02/05/18 03:59 02/05/18 08:00 02/05/18 08:00 02/05/18 08:00 02/05/18 08:00 Oxygen Flow Rate (L/min) 2 Oxygen Delivery Method Room Air Weight: 203 lb 14.841 oz Intake and Output for Last 24 Hours 02/03/18 02/04/18 02/05/18 23:59 23:59 23:59 Intake Total 1446 3204 / 3204 740 / 740 Output Total 1000 / 1000 600 / 600 Balance 1446 2204 / 2204 140 / 140 General: Awake, Alert, Oriented x 3, Cooperative, No Acute Distress Neck: No JVD Lungs: Clear to auscultation Cardiovascular: Regular Rhythm, Premature Ectopic Beats, Normal S1, Normal S2 Vascular: Normal Radial Pulses Abdomen: Bowel Sounds Present, Soft, Non Tender Extremities: No Cyanosis, No Clubbing, No edema Neurological: No Focal Motor or Sensory Deficit 02/05/18 05:35: WBC 19.5 H, RBC 4.28 L, Hgb 13.5, Hct 39.0 L, MCV 91.1, MCH 31.5 , MCHC 34.6, RDW 13.2, RDW Differential 43.0, Plt Count 244, MPV 10.3 02/05/18 05:35: Sodium 142, Potassium 3.9, Chloride 110 H, Carbon Dioxide 22.0, Anion Gap 10, BUN 17, Creatinine 0.83, Est GFR (MDRD) Af Amer 121, Est GFR (MDRD ) Non-Af 100, BUN/Creatinine Ratio 20.4 H, Glucose 137 H, Calcium 8.1 L Rhythm: This rhythm; occasional PVCs EKG: Sinus rhythm; sinus bradycardia Medical Necessity - Tobacco Use Smoking Status: Former smoker Assessment/Plan 1. Syncope The patient had a syncopal event. The etiology is unclear. From a cardiac standpoint he does have underlying cardiovascular disease and now has been found to have abnormal cardiac as well as abnormal troponin I levels. This would raise the concern of the possibility of progression of CAD which could lead to myocardial ischemia which could lead to transient dysrhythmias and subsequent syncope. The patient has been evaluated for other etiologies including a primary GRADES 9 THROUGH 12 TEACHER event. This appears to be negative at this time. No report of any obvious classic seizure like activity with tremulous body motion. However he may still be evaluated for this. Other possible etiologies may include thromboembolic disease such as pulmonary emboli. The patient did have a trip to [place] approximately 3-4 weeks ago. He states he drove to [place] and back in his RV. He states he had frequent stops based upon needing to let his dogs out of the vehicle. He denies any concerning lower extremity discomfort, erythema, edema, etc. since returning from his trip. He has undergone evaluation with diagnostic cardiac cath. He was found to have angiographically significant CAD of the OM and LPDA system. He is now s/p PCI/ PHOEBE to the OM and LPDA system. He will continue cardiovascular medical therapy as deemed appropriate. 2. Non-ST segment elevation [place] He does have abnormal troponin I levels concerning for an acute non-ST segment elevation [place]. Thus far there is no other definitive explanation for his troponin I levels. He has undergone evaluation and care as noted above. He will continue medical management. Ideally this would include his aspirin, antiplatelets, nitrates as needed, beta-blockers, afterload reducing agents, lipid-lowering agents, etc. He has been on beta-blockers in the past. In the past his dose was reduced and discontinued secondary to concerns of sinus bradycardia. Has been restarted on low-dose beta blockers with monitoring of his rate and rhythm. It would not be unreasonable to reattempt low-dose beta-blockers in light of his recent event and findings. However if he develops concerning bradycardia and/or associated symptoms than the dose may need to be further decreased or discontinued altogether. 3. CAD status post previous PTCA/PHOEBE to the LAD, diagonal branch, and LCx The patient will continue current medical therapy and follow up. 4. Hyperlipidemia The patient will continue lipid-lowering therapy. 5. Hypertension The patient's blood pressure is being monitored. He will continue medical management and follow-up. Overall, at the present time, the patient will continue medical management as tolerated. As long as the patient appears to remain symptomatically and hemodynamically stable and appears that he can be released home for continued outpatient cardiovascular follow-up. This may include outpatient 30 day ambulatory event monitor to continue to monitor his rate and rhythm on his medications and for any other associated concerns that may have contributed to his recent event. Comment: The patient's case was discussed with the patient. This note was generated with [employer] dictation software. It may contain incorrect words, spelling, and punctuation that were not noted in checking the note before signing.
[2018-02-05] MEDS: Aspirin E.C. 81 MG Tablet PO (10:10)
[2018-02-05] MEDS: TICAGRELOR 90 MG TABLET PO (10:10)
[2018-02-05] MEDS: Metoprolol Tartrate 25 MG Tablet 12.5 MG PO (10:10)
[2018-02-05] MEDS: Losartan Potassium 50 MG Tablet PO (10:10)
[2018-02-05] MEDS: Famotidine 20 MG Tablet PO (10:10)
--- NOTE | 2018-02-05 12:45 | PCM.DC ---
- Discharge Diagnoses Current Active Problems: Current Active and Chronic Problems (Last Updated 02/04/18 @ 13:10 by ELVIA Puckett) Syncope (Acute) Syncope (Acute) NSTEMI (non-ST elevated myocardial infarction) (Acute) CAD (coronary artery disease) (Chronic) S/P PTCA (percutaneous transluminal coronary angioplasty) (Chronic) 02/04/18: IVUS ostial LAD showing 30-40% lesion with eccentric plaque Successful PCI Prox OM2 using Elunir 2.5x17 mm PHOEBE, post-dilated using 3.0 mm balloon Successful PCI Prox LPDA using Elunir 2.5x12 mm PHOEBE You will use the following diet at home:: Cardiac Your food should be the consistency of: Regular Discharge Activity: Return to Normal Activity Allergies/Adverse Reactions: Allergies dye Allergy (Uncoded 02/03/18 09:06) Rash ANGIOGRAM DYE Medications to take at Discharge losartan 50 mg tablet 50 mg PO QDAY #90 tab 10/11/17 aspirin 81 mg tablet,delayed release 81 mg PO QDAY tab 12/23/17 atorvastatin 80 mg tablet 80 mg PO QDAY 12/23/17 Metoprolol Tartrate [Lopressor (beta gifty)] 12.5 mg PO BID #60 tab 02/05/18 Ticagrelor [Brilinta] 90 mg PO BID #180 tab 02/05/18 The following prescriptions were given: Metoprolol Tartrate [Lopressor (beta gifty)] 12.5 mg PO BID #60 tab Ticagrelor [Brilinta] 90 mg PO BID #180 tab Orders to be completed after discharge: 30-Day Event Recorder [[facility]] Location: None Selected Primary Care Physician: Gabriel Mendes MD [Primary Care Provider] - Please follow up with your Primary Care Physician in: 5 to 7 days Please Follow Up With: Mustapha Valle MD When: 3 to 4 weeks
--- NOTE | 2018-02-05 12:48 | PCM.DC.SUM ---
Discharge Date and Diagnosis - Problem List Patient Problems: Active and Suspected Problems (Last Updated 02/04/18 @ 13:10 by ELVIA Puckett) Syncope (Acute) Syncope (Acute) NSTEMI (non-ST elevated myocardial infarction) (Acute) Date of Admission: 02/03/18 Date of Discharge: 02/05/18 - Primary Discharge Diagnosis Active and Suspected Problems (Last Updated 02/04/18 @ 13:10 by ELVIA Puckett) Syncope (Acute) NSTEMI (non-ST elevated myocardial infarction) (Acute) - Secondary Discharge Diagnosis Chronic Problems (Last Updated 02/04/18 @ 13:10 by ELVIA Puckett) S/P PTCA (percutaneous transluminal coronary angioplasty) (Chronic) 02/04/18: IVUS ostial LAD showing 30-40% lesion with eccentric plaque Successful PCI Prox OM2 using Elunir 2.5x17 mm PHOEBE, post-dilated using 3.0 mm balloon Successful PCI Prox LPDA using Elunir 2.5x12 mm PHOEBE Palpitations (Chronic) HTN (hypertension), benign (Chronic) Atherosclerotic heart disease of [place] coronary artery without angina pectoris (Chronic) 7-10-10 PTCA/PHOEBE to circ, 7-12-10 PTCA/PHOEBE to mid LAD,proximal first diagonal; Old myocardial infarction (Chronic) HLD (hyperlipidemia) (Chronic) Hospital Course and Treatment Imaging Results: Diagnostic Data Chest X-Ray 02/03/18 09:21 IMPRESSION: Normal x-ray examination of the chest. Electronically Signed: Hitesh Solis MD at 9:51 EDT Tel [phone], Service support , Brain CT 02/03/18 09:24 IMPRESSION: Normal unenhanced CT scan of the brain. Electronically Signed: Hitesh Solis MD at 9:52 EDT Tel [phone], Service support , BLOCK CUTTER: Dr. Valle / Dr. Del Castillo, cardiology Operations: None Procedures: Cardiac catheterization Summary of Care Provided: Patient is a 63 years old male who presents with an episode of syncope, admitted on 02/03/18. He was at work this morning, doing some desk job. He suddenly felt funny with blurred vision. 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 He was diaphoretic after he woke up, but did not think he had chest pain. He did not have significant problems with dizziness, or visual change with darkening / white-out following blurred vision. He has no previous history of seizure disorder, although he had accident with bladder incontinence. Loss of consciousness itself was unwitnessed. He has history of coronary artery disease, had stent placement in 2009. He reports good normal function recently without any symptoms of angina. Initial troponin was normal, and EKG showed normal sinus rhythm with occasional PAC. Later, his troponin was elevated to 0.329. Cardiac cath was done, showing: LEFT MAIN: Absent LEFT ANTERIOR DECENDING ARTERY: Mild luminal irregularities OSTIAL LAD: Eccentric: 25-50 % Stenosis MID LAD: Previously placed stent is patent DIAGONAL 1: Proximal - Previously placed stent is patent CIRCUMFLEX ARTERY: PROX CIRC: Eccentric: 25 % Stenosis MID CIRC: Mild luminal irregularities OM 1: Proximal - Eccentric: 85 % Stenosis LT PDA: Left PDA: Proximal - Eccentric: 85 % Stenosis RIGHT CORONARY ARTERY: Mild luminal irregularities #1 Syncope. Troponin was been elevating. Continue to trend. Etiology is not clear. Possibly due to ACS, or he may have episodes of tachyarrhythmia that causes syncopal episode and demand-mismatch. He is chest pain free. Because of unwitnessed syncope and incontinence, EEG was done, which was normal. He underwent cardiac cath, found to have significant stenosis at OM1 and LPDA, PHOEBE placed. (02/04) Discussed with Dr. Valle. Concerning of malignant arrhythmia as underling problems lead to NSTEMI. plan for 30 days event monitor as outpatient also. Discharge with Brilinta, atorvastatin, aspirin, and metoprolol. #2 NSTEMI. See above. #3 History of coronary artery disease. S/P stent in 2009. Cath repeated on 02/04, PHOEBE placed to OM1 and LPDA. #4 Essential hypertension. Continue losartan. VTE prophylaxis: heparin SQ. GI prophylaxis: H2 selin po. Patient is full code. Disposition: Home Discharge Activity: Return to Normal Activity Home Medications: Medications to take at Discharge losartan 50 mg tablet 50 mg PO QDAY #90 tab 10/11/17 aspirin 81 mg tablet,delayed release 81 mg PO QDAY tab 12/23/17 atorvastatin 80 mg tablet 80 mg PO QDAY 12/23/17 Metoprolol Tartrate [Lopressor (beta selin)] 12.5 mg PO BID #60 tab 02/05/18 Ticagrelor [Brilinta] 90 mg PO BID #180 tab 02/05/18 Following Prescrptions Were Given to Patient: Metoprolol Tartrate [Lopressor (beta selin)] 12.5 mg PO BID #60 tab Ticagrelor [Brilinta] 90 mg PO BID #180 tab Other Amb Orders: 30-Day Event Recorder [[facility]] Location: None Selected Primary Care Physician: Gabriel Mendes MD [Primary Care Provider] - Please follow up with your Primary Care Physician in: 5 to 7 days Please Follow Up With: Mustapha Valle MD When: 3 to 4 weeks Medical Necessity - Tobacco Use Smoking Status: Former smoker Meaningful Use Info Meaningful Use Diagnoses (Choose all that apply): AMI - AMI Aspirin given w/in 24hrs of arrival?: Yes ASA at discharge?: Yes Statins at discharge?: Yes Theo/ARB at discharge?: Yes Beta Selin at discharge?: Yes Done w/ Acute MT measure.: Yes Code Visit Inpatient E&M: 08801 Disch Hosp
--- NOTE | 2018-02-05 12:52 | DS.PCM_ITS ---
Discharge Date and Diagnosis - Problem List Patient Problems: Active and Suspected Problems (Last Updated 02/04/18 @ 13:10 by ELVIA Puckett) Syncope (Acute) Syncope (Acute) NSTEMI (non-ST elevated myocardial infarction) (Acute) Date of Admission: 02/03/18 Date of Discharge: 02/05/18 - Primary Discharge Diagnosis Active and Suspected Problems (Last Updated 02/04/18 @ 13:10 by ELVIA Puckett) Syncope (Acute) NSTEMI (non-ST elevated myocardial infarction) (Acute) - Secondary Discharge Diagnosis Chronic Problems (Last Updated 02/04/18 @ 13:10 by ELVIA Puckett) S/P PTCA (percutaneous transluminal coronary angioplasty) (Chronic) 02/04/18: IVUS ostial LAD showing 30-40% lesion with eccentric plaque Successful PCI Prox OM2 using Elunir 2.5x17 mm PHOEBE, post-dilated using 3.0 mm balloon Successful PCI Prox LPDA using Elunir 2.5x12 mm PHOEBE Palpitations (Chronic) HTN (hypertension), benign (Chronic) Atherosclerotic heart disease of [place] coronary artery without angina pectoris (Chronic) 7-10-10 PTCA/PHOEBE to circ, 7-12-10 PTCA/PHOEBE to mid LAD,proximal first diagonal; Old myocardial infarction (Chronic) HLD (hyperlipidemia) (Chronic) Hospital Course and Treatment Imaging Results: Diagnostic Data Chest X-Ray 02/03/18 09:21 IMPRESSION: Normal x-ray examination of the chest. Electronically Signed: Hitesh Solis MD at 9:51 EDT Tel [phone], Service support , Brain CT 02/03/18 09:24 IMPRESSION: Normal unenhanced CT scan of the brain. Electronically Signed: Hitesh Solis MD at 9:52 EDT Tel [phone], Service support , ERP CONSULTANT: Dr. Valle / Dr. Del Castillo, cardiology Operations: None Procedures: Cardiac catheterization Summary of Care Provided: Patient is a 63 years old male who presents with an episode of syncope , admitted on 02/03/18. He was at work this morning, doing some desk job. He suddenly felt ?funny? with blurred vision. 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 He was diaphoretic after he woke up, but did not think he had chest pain. He did not have significant problems with dizziness, or visual change with darkening / ?white-out? following blurred vision. He has no previous history of seizure disorder, although he had accident with bladder incontinence. Loss of consciousness itself was unwitnessed. He has history of coronary artery disease, had stent placement in 2009. He reports good normal function recently without any symptoms of angina. Initial troponin was normal, and EKG showed normal sinus rhythm with occasional PAC. Later, his troponin was elevated to 0.329. Cardiac cath was done, showing: LEFT MAIN: Absent LEFT ANTERIOR DECENDING ARTERY: Mild luminal irregularities OSTIAL LAD: Eccentric: 25-50 % Stenosis MID LAD: Previously placed stent is patent DIAGONAL 1: Proximal - Previously placed stent is patent CIRCUMFLEX ARTERY: PROX CIRC: Eccentric: 25 % Stenosis MID CIRC: Mild luminal irregularities OM 1: Proximal - Eccentric: 85 % Stenosis LT PDA: Left PDA: Proximal - Eccentric: 85 % Stenosis RIGHT CORONARY ARTERY: Mild luminal irregularities #1 Syncope. Troponin was been elevating. Continue to trend. Etiology is not clear. Possibly due to ACS, or he may have episodes of tachyarrhythmia that causes syncopal episode and demand-mismatch. He is chest pain free. Because of unwitnessed syncope and incontinence, EEG was done, which was normal. He underwent cardiac cath, found to have significant stenosis at OM1 and LPDA, PHOEBE placed. (02/04) Discussed with Dr. Valle. Concerning of malignant arrhythmia as underling problems lead to NSTEMI. plan for 30 days event monitor as outpatient also. Discharge with Brilinta, atorvastatin, aspirin, and metoprolol. #2 NSTEMI. See above. #3 History of coronary artery disease. S/P stent in 2009. Cath repeated on 02/04, PHOEBE placed to OM1 and LPDA. #4 Essential hypertension. Continue losartan. VTE prophylaxis: heparin SQ. GI prophylaxis: H2 selin po. Patient is full code. Disposition: Home Discharge Activity: Return to Normal Activity Home Medications: Medications to take at Discharge losartan 50 mg tablet 50 mg PO QDAY #90 tab 10/11/17 aspirin 81 mg tablet,delayed release 81 mg PO QDAY tab 12/23/17 atorvastatin 80 mg tablet 80 mg PO QDAY 12/23/17 Metoprolol Tartrate [Lopressor (beta selin)] 12.5 mg PO BID #60 tab 02/05/18 Ticagrelor [Brilinta] 90 mg PO BID #180 tab 02/05/18 Following Prescrptions Were Given to Patient: Metoprolol Tartrate [Lopressor (beta selin)] 12.5 mg PO BID #60 tab Ticagrelor [Brilinta] 90 mg PO BID #180 tab Other Amb Orders: 30-Day Event Recorder [[facility]] Location: None Selected Primary Care Physician: Gabriel Mendes MD [Primary Care Provider] - Please follow up with your Primary Care Physician in: 5 to 7 days Please Follow Up With: Mustapha Valle MD When: 3 to 4 weeks Medical Necessity - Tobacco Use Smoking Status: Former smoker Meaningful Use Info Meaningful Use Diagnoses (Choose all that apply): AMI - AMI Aspirin given w/in 24hrs of arrival?: Yes ASA at discharge?: Yes Statins at discharge?: Yes Theo/ARB at discharge?: Yes Beta Selin at discharge?: Yes Done w/ Acute [place] measure.: Yes Code Visit Inpatient E&M: 51549 Disch Hosp
== END 2018-02-05 13:50 | disposition home or self-care (01) | DRG 247 ==
LOC: ED 10:12 → PCU 11:10 → ICU 02-04 10:27
PROVIDERS: Internal Medicine Cardiovascular Disease; Admitting Provider Hospitalist; Emergency Provider Emergency Medicine; Family Provider Family Medicine; PCP Family Medicine; Visit Provider Hospitalist
DX: I21.4 Non-ST elevation (NSTEMI) myocardial infarction (principal); R55 Syncope and collapse; I25.10 Atherosclerotic heart disease of native coronary artery without angina pectoris; I10 Essential (primary) hypertension; E78.5 Hyperlipidemia, unspecified; I25.2 Old myocardial infarction; R00.2 Palpitations; Z95.5 Presence of coronary angioplasty implant and graft; Z87.891 Personal history of nicotine dependence; Z79.82 Long term (current) use of aspirin; Z79.899 Other long term (current) drug therapy
CPT/HCPCS: 36415; 70450; 71045; 80048; 83735; 84443; 84484; 85025; 85027; 85347; 85610; 85730; 87641; 92928; 92929; 92978; 93005; 93306; 93454; 95819; 99152; 99153; 99285; J7030; J7040; Q9957; Q9967; A4216; C1725; C1753; C1769; C1874; C1887; C1894; C8929; C9600; C9601

== ENCOUNTER → 2018-09-01 08:43 | Outpatient (CLI) | payer OTHER, SELFPAY ==
[2018-05-24 08:55] VITALS: BMI 32.6
[2018-09-01 10:51] LABS: Hemoglobin A1c 6.5 % (4.2-6.3)
[2018-09-01 11:00] LABS: AST(SGOT) 23 U/L (15-37); Alanine Aminotransfer ALT/SGPT 39 U/L (16-61); Albumin, Serum 3.7 g/dL (3.2-5.0); Alkaline Phosphatase 72 U/L (45-117); Bilirubin, Direct 0.14 mg/dL (0.00-0.30); Cholesterol 148 mg/dL (200); Globulin 3.3 g/dL (2.2-4.2); High Density Lipoprotein 33 mg/dL; Triglycerides 147 mg/dL; Very Low Density Lipoprotein 29 mg/dL (5-40)
[2018-09-01 11:12] LABS: Glucose 117 mg/dL (74-106); PSA,Total- Diagnostic 3.24 ng/mL (0.0-4.0)
== END ==
PROVIDERS: Internal Medicine Cardiovascular Disease; Family Provider Family Medicine; PCP Family Medicine; Visit Provider Family Medicine
DX: R73.09 Other abnormal glucose (principal); R97.20 Elevated prostate specific antigen [PSA]; E78.5 Hyperlipidemia, unspecified
CPT/HCPCS: 36415; 80061; 80076; 82947; 83036; 84153

== ENCOUNTER → 2019-08-16 08:20 | Outpatient (CLI) | payer OTHER, SELFPAY ==
[2019-05-31 11:37] VITALS: BMI 31.7
[2019-08-16 10:40] LABS: Anion Gap 7 (5-15); BUN 18 mg/dL (7-18); BUN/Creat Ratio 18.7 RATIO (10-20); Calcium,Total 8.7 mg/dL (8.5-10.1); Chloride 109 mmol/L (98-107); Creatinine, Serum 0.96 mg/dL (0.70-1.30); EST Glomerular Filtration Rate 84 mL/min (>60); Est Glom Filt Rate - Afr Amer 102 mL/min (>60); Glucose 133 mg/dL (74-106); PSA,Total- Diagnostic 3.16 ng/mL (0.0-4.0); Sodium Level 139 mmol/L (136-145)
[2019-08-16 13:45] LABS: AST(SGOT) 19 U/L (15-37); Alanine Aminotransfer ALT/SGPT 31 U/L (16-61); Albumin, Serum 3.7 g/dL (3.2-5.0); Alkaline Phosphatase 78 U/L (45-117); Bilirubin, Direct 0.17 mg/dL (0.00-0.30); Cholesterol 162 mg/dL (200); Globulin 3.1 g/dL (2.2-4.2); High Density Lipoprotein 33 mg/dL; Protein, Total 6.8 g/dL (6.4-8.2); Triglycerides 116 mg/dL; Very Low Density Lipoprotein 23 mg/dL (5-40)
== END ==
PROVIDERS: Nurse Practitioner Family; Family Provider Family Medicine; PCP Family Medicine; Referring Provider Family Medicine; Visit Provider Family Medicine
DX: E78.5 Hyperlipidemia, unspecified (principal); R97.20 Elevated prostate specific antigen [PSA]; R73.03 Prediabetes
CPT/HCPCS: 36415; 80048; 80061; 80076; 83036; 84153

== ENCOUNTER → 2020-06-28 09:34 | Outpatient (CLI) | payer MEDICAID, SELFPAY ==
[2020-03-29 10:26] VITALS: BMI 32.1
[2020-06-28 13:03] LABS: ALB/GLOB Ratio 0.9 RATIO (0.9-2.4); AST(SGOT) 19 U/L (15-37); Alanine Aminotransfer ALT/SGPT 34 U/L (16-61); Albumin, Serum 3.4 g/dL (3.2-5.0); Alkaline Phosphatase 69 U/L (45-117); Anion Gap 5 (5-15); BUN 15 mg/dL (7-18); BUN/Creat Ratio 16.1 RATIO (10-20); Calcium,Total 8.4 mg/dL (8.5-10.1); Chloride 108 mmol/L (98-107); Cholesterol 132 mg/dL (200); Creatinine, Serum 0.93 mg/dL (0.70-1.30); EST Glomerular Filtration Rate 87 mL/min (>60); Est Glom Filt Rate - Afr Amer 105 mL/min (>60); Globulin 3.7 g/dL (2.2-4.2); Glucose 122 mg/dL (74-106); High Density Lipoprotein 36 mg/dL; Potassium 4.1 mmol/L (3.5-5.1); Protein, Total 7.1 g/dL (6.4-8.2); Sodium Level 139 mmol/L (136-145); Triglycerides 79 mg/dL; Very Low Density Lipoprotein 16 mg/dL (5-40)
== END ==
PROVIDERS: PCP Family Medicine; Referring Provider Family Medicine; Visit Provider Family Medicine
DX: I25.10 Atherosclerotic heart disease of native coronary artery without angina pectoris (principal); E78.00 Pure hypercholesterolemia, unspecified; R97.20 Elevated prostate specific antigen [PSA]
CPT/HCPCS: 36415; 80053; 80061; 84153

== ENCOUNTER → 2021-03-03 08:49 | Outpatient (CLI) | payer MEDICAID, SELFPAY ==
[2021-01-31 09:10] VITALS: BMI 31.7
[2021-03-03 10:39] LABS: AST(SGOT) 25 U/L (15-37); Alanine Aminotransfer ALT/SGPT 30 U/L (16-61); Albumin, Serum 3.8 g/dL (3.2-5.0); Alkaline Phosphatase 82 U/L (45-117); Bilirubin, Direct 0.15 mg/dL (0.00-0.30); Cholesterol 161 mg/dL (200); Globulin 3.3 g/dL (2.2-4.2); High Density Lipoprotein 33 mg/dL; Protein, Total 7.1 g/dL (6.4-8.2); Triglycerides 90 mg/dL; Very Low Density Lipoprotein 18 mg/dL (5-40)
[2021-03-03 11:01] LABS: PSA,Total- Diagnostic 6.22 ng/mL (0.0-4.0)
== END ==
PROVIDERS: Internal Medicine Cardiovascular Disease; PCP Family Medicine; Visit Provider Family Medicine
DX: E78.00 Pure hypercholesterolemia, unspecified (principal); R97.20 Elevated prostate specific antigen [PSA]; R73.03 Prediabetes
CPT/HCPCS: 36415; 80061; 80076; 83036; 84153

== ENCOUNTER 2021-09-15 09:31 | Outpatient (CLI) | payer MEDICAID, SELFPAY ==
[2021-09-15 12:31] LABS: AST(SGOT) 21 U/L (15-37); Alanine Aminotransfer ALT/SGPT 38 U/L (16-61); Albumin, Serum 3.3 g/dL (3.2-5.0); Alkaline Phosphatase 71 U/L (45-117); Bilirubin, Direct 0.16 mg/dL (0.00-0.30); Cholesterol 168 mg/dL (200); Globulin 4.1 g/dL (2.2-4.2); High Density Lipoprotein 31 mg/dL; Protein, Total 7.4 g/dL (6.4-8.2); Triglycerides 169 mg/dL; Very Low Density Lipoprotein 34 mg/dL (5-40)
[2021-09-15 13:06] LABS: PSA,Total - Annual Screen 6.01 ng/mL (0.00-4.00)
== END 2021-09-15 23:59 | disposition short-term general hospital (02) ==
LOC: MFPLAB 09:33
PROVIDERS: PCP Family Medicine; Visit Provider Internal Medicine Cardiovascular Disease
DX: R97.20 Elevated prostate specific antigen [PSA] (principal)
CPT/HCPCS: 36415; 80061; 80076; 84153; G0103

== ENCOUNTER → 2022-03-13 | Outpatient (CLI) | payer OTHER, SELFPAY ==
[2022-03-13 10:26] LABS: PSA,Total- Diagnostic 5.18 ng/mL (0.0-4.0)
== END | disposition home or self-care (01) ==
LOC: MFPLAB 08:10
PROVIDERS: PCP Family Medicine
DX: R97.20 Elevated prostate specific antigen [PSA] (principal)
CPT/HCPCS: 36415; 84153

== ENCOUNTER → 2022-08-11 | Outpatient (CLI) | payer MEDICARE, OTHER, SELFPAY ==
[2022-08-11 10:27] LABS: AST(SGOT) 18 U/L (15-37); Alanine Aminotransfer ALT/SGPT 28 U/L (16-61); Albumin, Serum 3.3 g/dL (3.2-5.0); Alkaline Phosphatase 65 U/L (45-117); Bilirubin, Direct 0.18 mg/dL (0.00-0.30); Cholesterol 148 mg/dL (200); Globulin 3.2 g/dL (2.2-4.2); High Density Lipoprotein 34 mg/dL; Protein, Total 6.5 g/dL (6.4-8.2); Triglycerides 72 mg/dL; Very Low Density Lipoprotein 14 mg/dL (5-40)
[2022-08-11 10:28] LABS: PSA,Total- Diagnostic 4.65 ng/mL (0.0-4.0)
== END | disposition home or self-care (01) ==
LOC: MFPLAB 08:34
PROVIDERS: PCP Family Medicine; Visit Provider Internal Medicine Cardiovascular Disease
DX: R97.20 Elevated prostate specific antigen [PSA] (principal); E78.00 Pure hypercholesterolemia, unspecified
CPT/HCPCS: 36415; 80061; 80076; 84153

== ENCOUNTER → 2022-09-02 | Outpatient (CLI) | payer MEDICARE, OTHER, SELFPAY ==
[2022-09-02 10:41] LABS: Anion Gap 6 (5-15); BUN 18 mg/dL (7-18); BUN/Creat Ratio 19.8 RATIO (10-20); Calcium,Total 9.2 mg/dL (8.5-10.1); Chloride 108 mmol/L (98-107); Creatinine, Serum 0.91 mg/dL (0.70-1.30); EST Glomerular Filtration Rate 89 mL/min (>60); Est Glom Filt Rate - Afr Amer 108 mL/min (>60); Glucose 130 mg/dL (74-106); Potassium 4.4 mmol/L (3.5-5.1); Sodium Level 140 mmol/L (136-145)
[2022-09-02 14:54] LABS: Hemoglobin A1c 6.2 % (3.8-5.6)
== END | disposition home or self-care (01) ==
LOC: MFPLAB 09:38
PROVIDERS: PCP Family Medicine; Referring Provider Family Medicine; Visit Provider Family Medicine
DX: R73.03 Prediabetes (principal)
CPT/HCPCS: 36415; 80048; 83036

== ENCOUNTER → 2023-09-01 | Outpatient (CLI) | payer MEDICARE, OTHER, SELFPAY ==
[2023-09-01 13:14] LABS: ALB/GLOB Ratio 0.9 RATIO (0.9-2.4); AST(SGOT) 23 U/L (15-37); Alanine Aminotransfer ALT/SGPT 32 U/L (16-61); Albumin, Serum 3.5 g/dL (3.2-5.0); Alkaline Phosphatase 71 U/L (45-117); Anion Gap 9 (5-15); BUN 17 mg/dL (7-18); BUN/Creat Ratio 19.4 RATIO (10-20); Calcium,Total 8.7 mg/dL (8.5-10.1); Chloride 107 mmol/L (98-107); Cholesterol 143 mg/dL (200); Creatinine, Serum 0.88 mg/dL (0.70-1.30); EST Glomerular Filtration Rate 93 mL/min (>60); Est Glom Filt Rate - Afr Amer 112 mL/min (>60); Globulin 3.8 g/dL (2.2-4.2); Glucose 129 mg/dL (74-106); High Density Lipoprotein 36 mg/dL; Potassium 4.4 mmol/L (3.5-5.1); Protein, Total 7.3 g/dL (6.4-8.2); Sodium Level 139 mmol/L (136-145); Triglycerides 77 mg/dL; Very Low Density Lipoprotein 15 mg/dL (5-40)
[2023-09-01 13:27] LABS: Hemoglobin A1c 5.9 % (3.8-5.6)
[2023-09-03 14:09] LABS: PSA, Free 1.11 ng/mL; PSA, Free % 23.1 % (.); PSA, Total 4.8 ng/mL (0.0-4.0)
== END | disposition home or self-care (01) ==
LOC: MFPLAB 10:43
PROVIDERS: PCP Family Medicine; Visit Provider Family Medicine
DX: R97.20 Elevated prostate specific antigen [PSA] (principal); I10 Essential (primary) hypertension; R73.03 Prediabetes
CPT/HCPCS: 36415; 80053; 80061; 83036; 84153

== ENCOUNTER → 2023-10-12 | Outpatient (CLI) | payer MEDICARE, OTHER, SELFPAY ==
--- OUTSIDE RECORDS SUMMARY | 2023-10-12 06:25 | XMS RPT_ITS | CCD ---
Author Name Unknown Address [id number] [place] [address] Organization [facility] Care Team Providers Care Shop Superintendent Name Role Phone Gutierrez CONTRERAS, Mima Lynn Unavailable [phone] Gutierrez CONTRERAS, Mima Lynn Unavailable DeFinis, Harumi Y Unavailable Unavailable Kia Harumi Y Unavailable Unavailable Faina CONTRERAS, Evelin Liang Unavailable Unavailable Mustapha Chavarria MD Unavailable [phone] HÉCTOR STEELE Unavailable Unavailable MUSTAPHA CHAVARRIA Unavailable Unavailable MUSTAPHA CHAVARRIA Unavailable Unavailable Gutierrez CONTRERAS, Mima Lynn Unavailable [phone] [facility] Primary Care Provider Hue FOREST Holloway Attending Unavailable [facility] Primary Care Unavailab le Allergies Allergy Classification Reported Allergen(s) Allergy Type Date of Onset Reaction(s) Facility (7 sources) Contrast media drug allergy 11-25-2010 ? post cath, rash one week after cath [facility] Work Phone: Medications Completed/Discontinued Medications Medication Drug Class(es) Dates Sig (Normalized) Sig (Original) aspirin 81 mg delayed release oral tablet (20 sources) Nonsteroidal Anti-inflammatory Drug Start: 03-31-2010 take 1 tablet by mouth once daily ASPIRIN 325 MG TABS One tablet by mouth daily ASPIRIN [id number] Therese Beltre Problems Active Problems Problem Classification Problem Date Documented Date Episodic/Chronic Coronary atherosclerosis and other heart disease (20 sources) Coronary arteriosclerosis in rincon artery; Translations: [Coronary arteriosclerosis] Onset: 11-25-2010 10-30-2015 Chronic Disorders of lipid metabolism (7 sources) Hyperlipidemia; Translations: [Hyperlipidemia, unspecified] Onset: 11-25-2010 11-25-2010 Chronic Essential hypertension (7 sources) Benign hypertension; Translations: [Essential (primary) hypertension] Onset: 04-16-2015 04-16-2015 Chronic Other screening for suspected conditions (not mental disorders or infectious disease) (3 sources) Raised prostate specific antigen; Translations: [Elevated prostate specific antigen [PSA]] Onset: 10-27-2022 Episodic Substance-related disorders (14 sources) Tobacco dependence syndrome; Translations: [Nicotine dependence, unspecified, uncomplicated] Onset: 11-25-2010 Resolved: 04-16-2015 04-16-2015 Chronic Unclassified (7 sources) Body mass index (BMI) 30.0-30.9, adult; Translations: [Body mass index (BMI) 30.0-30.9, adult] Onset: 11-06-2013 11-06-2013 Chronic Unclassified (5 sources) Long-term drug therapy; Translations: [Other prison (current) drug therapy] Onset: 11-25-2010 11-25-2010 Past or Other Problems Problem Classification Problem Date Documented Da te Episodic/Chronic Cardiac dysrhythmias (6 sources) Palpitations; Translations: [Palpitations] Onset: 03-19-2017 03-19-2017 Episodic Coronary atherosclerosis and other heart disease (12 sources) Coronary angioplasty status; Translations: [History of myocardial infarction] Onset: 11-25-2010 11-25-2010 Episodic Malaise and fatigue (14 sources) Fatigue; Translations: [Other fatigue] Onset: 11-25-2010 Resolved: 04-16-2015 04-16-2015 Episodic Other aftercare (2 sources) Other prison (current) drug therapy; Translations: [Other prison (current) drug therapy] Onset: 11-25-2010 11-25-2010 Episodic Other circulatory disease (2 sources) History of myocardial infarction; Translations: [Old myocardial infarction] Onset: 11-25-2010 11-25-2010 Episodic Other connective tissue disease (7 sources) Hematoma; Translations: [Nontraumatic hematoma of soft tissue] Onset: 04-16-2015 04-16-2015 Episodic Residual codes; unclassified (1 source) FH: Hypertension; Translations: [Family history of ischemic heart disease and other diseases of the circulatory system] 04-16-2015 Episodic Residual codes; unclassified (1 source) Family history of ischemic heart disease; Translations: [Family history of ischemic heart disease and other diseases of the circulatory system] Onset: 11-25-2010 11-25-2010 Episodic Unclassified (19 sources) FH: Raised blood lipids; Translations: [FH: Hypertension] Onset: 11-25-2010 04-16-2015 Episodic Results Test Name Value Interpretation Reference Range Facil ity Vital Signs Date Time Vital Sign Value Performing Clinician Faci lity 10-27-2022 10:20-0500 Body height 175.3 cm Forest Burton MD Work Phone: [facility] 10-27-2022 10:20-0500 Body weight 95.25 kg Forest Burton MD Work Phone: [facility] 10-27-2022 10:20-0500 Diastolic blood pressure 68 mm[Hg] Forest Burton MD Work Phone: [facility] 10-27-2022 10:20-0500 Systolic blood pressure 118 mm[Hg] Forest Burton MD Work Phone: [facility] 03-19-2017 09:13-0400 BMI (Body Mass Index) 30.42 kg/m2 [facility] Work Phone: 03-19-2017 09:13-0400 BP Diastolic 84 mm[Hg] [facility] Work Phone: 03-19-2017 09:13-0400 BP Systolic 128 mm[Hg] [facility] Work Phone: 03-19-2017 09:13-0400 Height 175.26 cm [facility] Work Phone: 03-19-2017 09:13-0400 Pulse (Heart Rate) 64 /min [facility] Work Phone: 03-19-2017 09:13-0400 Respiratory Rate 20 /min [facility] Work Phone: 03-19-2017 09:13-0400 Weight 93.44 kg Mima Whitley RN [facility] Work Phone: 10-19-2016 08:12-0500 BMI (Body Mass Index) 30.99 kg/m2 [facility] Work Phone: 10-19-2016 08:12-0500 BP Diastolic 70 mm[Hg] Harumi DeFinis [facility] Work Phone: 10-19-2016 08:12-0500 BP Systolic 110 mm[Hg] Harumi DeFinis [facility] Work Phone: 10-19-2016 08:12-0500 BSA (Body Surface Area) 2.11 m2 Harumi DeFinis [facility] Work Phone: 10-19-2016 08:12-0500 Pulse (Heart Rate) 64 /min Hardevang DeFinis [facility] Work Phone: 10-19-2016 08:12-0500 Respiratory Rate 12 /min Hardevang DeFinis [facility] Work Phone: 10-19-2016 08:12-0500 Weight 95.21 kg Hardevang DeFinis [facility] Work Phone: 05-07-2016 08:28-0400 Heart rate 46 /min Mima Whitley RN [facility] Work Phone: 03-09-2013 08:31-0400 Heart rate 402 ms Mima Whitley RN [facility] Work Phone: 07-30-2011 17:00-0500 Height 175.26 cm Augusto DeFinis [facility] Work Phone: Encounters Encounter Date Encounter Type Care Provider Facility Start: 10-27-2022 End: 10-27-2022 ambulatory [facility] Facility:[id number] Start: 10-27-2022 End: 10-27-2022 Patient encounter procedure Forest Burton MD Work Phone: Urology Procedures Date Procedure Procedure Detail Performing Clinician Start: 10-27-2022 BLADDER SCAN Forest Burton MD Work Phone: Start: 07-06-2017 End: 07-13-2017 *Hepatic Function Panel Mustapha Chavarria MD Start: 07-06-2017 End: 07-13-2017 Lipid 1996 panel - Serum or Plasma Mustapha Chavarria MD Start: 10-19-2016 End: 01-04-2017 *Hepatic Function Panel Mustapha Chavarria MD Start: 10-19-2016 End: 01-04-2017 Lipid 1996 panel - Serum or Plasma Mustapha Chavarria MD Start: 10-19-2016 End: 10-19-2016 Dietary management education, guidance, and counseling Mima Whitley RN Start: 10-19-2016 End: 01-04-2017 *Hepatic Function Panel Mustapha Chavarria MD Start: 10-19-2016 End: 01-04-2017 Lipid panel [AGGREGATE] Mustapha Chavarria MD Start: 07-16-2016 End: 01-08-2017 *Hepatic Function Panel Mustapha Chavarria MD Start: 07-16-2016 End: 01-08-2017 Lipid 1996 panel - Serum or Plasma Mustapha Chavarria MD Start: 07-16-2016 End: 01-08-2017 *Hepatic Function Panel Mustapha Chavarria MD Start: 07-16-2016 End: 01-08-2017 Lipid panel [AGGREGATE] Mustapha Chavarria MD Start: 05-07-2016 End: 05-07-2016 Ecg routine ecg w/least 12 lds w/i&r Mima Andersen PA-C Work Phone: Start: 05-07-2016 End: 05-07-2016 Follow Up Appt 6 months Mima limon PA-C Work Phone: Start: 05-07-2016 End: 05-07-2016 PFM Mima Andersen PA-C Work Phone: Start: 05-07-2016 End: 05-07-2016 Electrocardiogram, complete Mima Shaikh PA-C Work Phone: Start: 05-07-2016 End: 05-07-2016 Follow Up Appt 6 months Mima limon PA-C Work Phone: Start: 05-07-2016 End: 05-07-2016 PFM Mima Andersen PA-C Work Phone: Start: 01-08-2016 End: 01-16-2016 *Hepatic Function Panel Mima limon PA-C Work Phone: Start: 01-08-2016 End: 01-14-2016 Lipid 1996 panel - Serum or Plasma Mima Andersen PA-C Work Phone: Start: 01-08-2016 End: 01-16-2016 *Hepatic Function Panel Mima limon PA-C Work Phone: Start: 01-08-2016 End: 01-14-2016 Lipid panel [AGGREGATE] Mima limon PA-C Work Phone: Start: 11-04-2015 End: 01-14-2016 *Hepatic Function Panel Mustapha Chavarria MD Start: 11-04-2015 End: 11-04-2015 Follow Up Appt 6 months Mustapha Chavarria MD Start: 11-04-2015 End: 01-16-2016 Lipid 1996 panel - Serum or Plasma Mustapha Chavarria MD Start: 11-04-2015 End: 11-04-2015 MMM Mustapha Chavarria MD Start: 11-04-2015 End: 01-14-2016 *Hepatic Function Panel Mustapha Chavarria MD Start: 11-04-2015 End: 11-04-2015 Follow Up Appt 6 months Mustapha Chavarria MD Start: 11-04-2015 End: 01-16-2016 Lipid panel [AGGREGATE] Mustapha Chavarria MD Start: 11-04-2015 End: 11-04-2015 MMM Mustapha Chavarria MD Start: 05-31-2015 End: 07-09-2015 *Hepatic Function Panel Mustapha Chavarria MD Start: 05-31-2015 End: 07-09-2015 Lipid 1996 panel - Serum or Plasma Mustapha Chavarria MD Start: 05-31-2015 End: 07-09-2015 *Hepatic Function Panel Mustapha Chavarria MD Start: 05-31-2015 End: 07-09-2015 Lipid panel [AGGREGATE] Mustapha Chavarria MD Start: 04-16-2015 End: 04-17-2015 Documentation of current medications Mima Andersen PA-C Work Phone: Start: 04-16-2015 End: 04-16-2015 Ecg routine ecg w/least 12 lds w/i&r Mima Andersen PA-C Work Phone: Start: 04-16-2015 End: 04-16-2015 Follow Up Appt 6 months Mima limon PA-C Work Phone: Start: 04-16-2015 End: 04-16-2015 PFM Mima Andersen PA-C Work Phone: Start: 04-16-2015 End: 04-17-2015 Documentation of current medications Mima Andersen PA-C Work Phone: Start: 04-16-2015 End: 04-16-2015 Electrocardiogram, complete Mima Shaikh PA-C Work Phone: Start: 04-16-2015 End: 04-16-2015 Follow Up Appt 6 months Mima limon PA-C Work Phone: Start: 04-16-2015 End: 04-16-2015 PFM Mima Andersen PA-C Work Phone: Start: 10-26-2014 End: 11-29-2014 *Hepatic Function Panel Mustapha Chavarria MD Start: 10-26-2014 End: 10-26-2014 Follow Up Appt 6 months Mustapha Chavarria MD Start: 10-26-2014 End: 11-29-2014 Lipid 1996 panel - Serum or Plasma Mustapha Chavarria MD Start: 10-26-2014 End: 10-26-2014 MMM Mustapha Chavarria MD Start: 10-26-2014 End: 11-29-2014 *Hepatic Function Panel Mustapha Chavarria MD Start: 10-26-2014 End: 10-26-2014 Follow Up Appt 6 months Mustapha Chavarria MD Start: 10-26-2014 End: 11-29-2014 Lipid panel [AGGREGATE] Mustapha Chavarria MD Start: 10-26-2014 End: 10-26-2014 [facility] Mustapha Chavarria MD Start: 05-07-2014 End: 05-07-2014 Follow Up Appt 6 months Mima limon PA-C Work Phone: Start: 05-07-2014 End: 05-07-2014 PFM Mima Andersen PA-C Work Phone: Start: 05-07-2014 End: 05-07-2014 Follow Up Appt 6 months Mima limon PA-C Work Phone: Start: 05-07-2014 End: 05-07-2014 PFM Mima Andersen PA-C Work Phone: Start: 02-11-2014 End: 04-25-2014 *Hepatic Function Panel Mima limon PA-C Work Phone: Start: 02-11-2014 End: 04-25-2014 Lipid 1996 panel - Serum or Plasma Mima Andersen PA-C Work Phone: Start: 02-11-2014 End: 04-25-2014 *Hepatic Function Panel Mima limon PA-C Work Phone: Start: 02-11-2014 End: 04-25-2014 Lipid panel [AGGREGATE] Mima limon PA-C Work Phone: Start: 11-06-2013 End: 04-17-2014 *Hepatic Function Panel Mustapha Chavarria MD Start: 11-06-2013 End: 11-06-2013 Follow Up Appt 6 months Mustapha Chavarria MD Start: 11-06-2013 End: 04-17-2014 Lipid 1996 panel - Serum or Plasma Mustapha Chavarria MD Start: 11-06-2013 End: 11-06-2013 MMAgustín Chavarria MD Start: 11-06-2013 End: 04-17-2014 *Hepatic Function Panel Mustapha Chavarria MD Start: 11-06-2013 End: 11-06-2013 Follow Up Appt 6 months Mustapha Chavarria MD Start: 11-06-2013 End: 04-17-2014 Lipid panel [AGGREGATE] Mustapha Chavarria MD Start: 11-06-2013 End: 11-06-2013 MMM Mustapha Chavarria MD Start: 09-12-2013 End: 09-12-2013 *Hepatic Function Panel Mima limon PA-C Work Phone: Start: 09-12-2013 End: 09-12-2013 Lipid 1996 panel - Serum or Plasma Mima Andersen PA-C Work Phone: Start: 09-12-2013 End: 09-12-2013 *Hepatic Function Panel Mima limon PA-C Work Phone: Start: 09-12-2013 End: 09-12-2013 Lipid panel [AGGREGATE] Mima limon PA-C Work Phone: Start: 08-13-2013 End: 09-12-2013 Thyrotropin [Units/volume] in Serum or Plasma Mima Andersen PA-C Work Phone: Start: 08-13-2013 End: 09-12-2013 Thyroxine (T4) [Mass/volume] in Serum or Plasma Mima Andersen PA-C Work Phone: Start: 08-13-2013 End: 09-12-2013 Lipid panel [AGGREGATE] Mima limon PA-C Work Phone: Start: 08-13-2013 End: 09-12-2013 Thyroid stimulating hormone (TSH) Mima Andersen PA-C Work Phone: Start: 08-13-2013 End: 09-12-2013 Thyroxine (T4) [Mass/volume] in Serum or Plasma Mima Andersen PA-C Work Phone: Start: 03-09-2013 End: 03-09-2013 Ecg routine ecg w/least 12 lds w/i&r Mima Andersen PA-C Work Phone: Start: 03-09-2013 End: 03-09-2013 Follow Up Appt 6 months Mima limon PA-C Work Phone: Start: 03-09-2013 End: 03-09-2013 PFM Mima Andersen PA-C Work Phone: Start: 03-09-2013 End: 03-09-2013 Electrocardiogram, complete Mima Shaikh PA-C Work Phone: Start: 03-09-2013 End: 03-09-2013 Follow Up Appt 6 months Mima limon PA-C Work Phone: Start: 03-09-2013 End: 03-09-2013 [facility] Mima Andersen PA-C Work Phone: Start: 08-25-2012 End: 03-01-2013 *Hepatic Function Panel Mustapha Chavarria MD Start: 08-25-2012 End: 08-25-2012 Follow Up Appt 6 months Mustapha Chavarria MD Start: 08-25-2012 End: 08-25-2012 Follow Up Appt Other Mustapha Chavarria MD Start: 08-25-2012 End: 03-01-2013 Lipid 1996 panel - Serum or Plasma Mustapha Chavarria MD Start: 08-25-2012 End: 03-01-2013 Thyrotropin [Units/volume] in Serum or Plasma Mustapha Chavarria MD Start: 08-25-2012 End: 03-01-2013 Thyroxine (T4) [Mass/volume] in Serum or Plasma Mustapha Chavarria MD Start: 08-25-2012 End: 03-01-2013 *Hepatic Function Panel Mustapha Chavarria MD Start: 08-25-2012 End: 08-25-2012 Follow Up Appt 6 months Mustapha Chavarria MD Start: 08-25-2012 End: 08-25-2012 Follow Up Appt Other Mustapha Chavarria MD Start: 08-25-2012 End: 03-01-2013 Lipid panel [AGGREGATE] Mustapha Chavarria MD Start: 08-25-2012 End: 03-01-2013 Thyrotropin [Units/volume] in Serum or Plasma Mustapha Chavarria MD Start: 08-25-2012 End: 03-01-2013 Thyroxine (T4) Mustapha Chavarira MD Start: 02-18-2012 End: 08-25-2012 *CBC with Differential Mustapha Chavarria MD Start: 02-18-2012 End: 08-25-2012 Ecg routine ecg w/least 12 lds w/i&r Mustapha Chavarria MD Start: 02-18-2012 End: 08-25-2012 Echocardiography Mustapha Chavarria MD Start: 02-18-2012 End: 08-25-2012 Nuclear stress test -exercise Mustapha koenig MD Start: 02-18-2012 End: 08-25-2012 Thyrotropin [Units/volume] in Serum or Plasma Mustapha Chavarria MD Start: 02-18-2012 End: 08-25-2012 Thyroxine (T4) [Mass/volume] in Serum or Plasma Mustapha Chavraria MD Start: 02-18-2012 End: 08-25-2012 *CBC with Differential Mustapha Chavarria MD Start: 02-18-2012 End: 08-25-2012 Echocardiography Mustapha Chavarria MD Start: 02-18-2012 End: 08-25-2012 Electrocardiogram, complete Mustapha smallwood MD Start: 02-18-2012 End: 08-25-2012 Nuclear stress test -exercise Mustpaha koenig MD Start: 02-18-2012 End: 08-25-2012 Thyroid stimulating hormone (TSH) Mustapha Chavarria MD Start: 02-18-2012 End: 08-25-2012 Thyroxine (T4) [Mass/volume] in Serum or Plasma Mustapha Chavarria MD Start: 07-30-2011 End: 02-10-2012 *Hepatic Function Panel Mustapha Chavarria MD Start: 07-30-2011 End: 07-30-2011 Follow Up Appt 6 months Mustapha Chavarria MD Start: 07-30-2011 End: 02-10-2012 Lipid 1996 panel - Serum or Plasma Mustapha Chavarria MD Start: 07-30-2011 End: 02-10-2012 *Hepatic Function Panel Mustapha Chavarria MD Start: 07-30-2011 End: 07-30-2011 Follow Up Appt 6 months Mustapha Chavarria MD Start: 07-30-2011 End: 02-10-2012 Lipid panel [AGGREGATE] Mustapha Chavarria MD Plan of Treatment Date Care Activity Detail Author Start: 10-27-2022 End: 12-27-2022 Prostate specific Ag [Mass/volume] in Serum or Plasma PSA/PROSTSPECAG DIAG Lab Routine Elevated prostate specific antigen (PSA) Expected: 10/27/2022, Expires: 12/27/2022 [facility] Work Phone: Payers Date Payer Category Payer Private Health Insurance [facility] AARP SUPPLEMENT [id number] 2022-Present [phone] [address] [place] [address] Indemnity [id number] 2022 Unknown [id number] 2022 Medicare MEDICARE MEDICAR E A AND B [id number] 2022-Present [phone] [place] [address] Medicare [id number] 2022 Medicare [id number] 2017 Unknown [id number] Social History Date Type Detail Facility Start: 10-27-2022 Tobacco smoking stat us [facility]IS Ex-smoker [facility] End: 09-13-2009 History of tobacco use Current smoker [facility] End: 09-13-2009 History of tobacco use Cigarette Smoker [facility] Start: 10-27-2022 Tobacco use and exposure Smoke less tobacco non-user [facility] Start: 10-27-2022 Alcohol intake Lifetime non-d nael (finding) [facility] Start: 1955 Sex Assigned At Not on file [facility] Progress note 10-27-2022 Note Date & Type Note Facility 10-27-2022 Note HNO ID: [id number] Author: Forest Burton MD Service: ? Author Type: Physician Type: Progress Notes Filed: 10/27/2022 10:49 AM Note Text: ESTABLISHED PATIENT OFFICE VISIT Follow-up elevated PSA. He denies bothersome lower urinary tract symptoms or hematuria. His PSA decreased this visit to 4.65. LAB RESULTS No results found for: CREAT No results found for: PSA, PSASC No results found for: UGLUCPOC, UBILIPOC, UKETONPOC, USGPOC, UHBPOC, UPHPOC, UPROPOC, UUROPOC, UNITPOC, UWBCPOC, UCOLPOC, UCLARPOC] ALLERGIES Not on File MEDICATIONS: clopidogrel (PLAVIX) 75 mg tablet aspirin, enteric coated (ASPIRIN, ENTERIC COATED) 81 mg EC tablet Take by mouth. atorvastatin (LIPITOR) 80 mg tablet metoprolol tartrate, short acting, (LOPRESSOR) 25 mg tablet losartan (COZAAR) 50 mg tablet REVIEW OF SYSTEMS GENERAL: No unintentional weight loss, malaise or fevers. NEUROLOGIC: pt is alert and oriented GASTROINTESTINAL: No nausea, vomiting, or diarrhea GENITOURINARY: No history of dysuria, frequency or incontinence MUSCULOSKELETAL: Negative for joint pain or swelling, back pain or muscle pain SKIN: Negative for lesions, rash, and itching. ACTIVE PROBLEM LIST Elevated Prostate Specific Antigen (Psa) HISTORIES PAST MEDICAL HISTORY Diagnosis Date Elevated prostate specific antigen (PSA) History reviewed. No pertinent family history. PAST SURGICAL HISTORY Procedure Laterality Date PT ED HEART AND VASCULAR SOCIAL HISTORY Social History Tobacco Use Smoking status: Former Types: Cigarettes Quit date: 2009 Years since quittin.1 Smokeless tobacco: Never Substance Use Topics Alcohol use: Never Drug use: Never PHYSICAL EXAMINATION General appearance: Well appearing, alert, in no acute distress, well-hydrated, well nourished Psych Alert and oriented to person, place and time Genitourinary: MALE EXAM: He has no rectal mass. His prostate was enlarged but soft. There were no nodules. ASSESSMENT/PLAN: 1. Elevated prostate specific antigen (PSA) - ICD9: 790.93, ICD10: R97.20 I will repeat a PSA in 1 year. - BLADDER SCAN - PSA/PROSTSPECAG DIAG Forest Burton MD [facility] History of Present illness Narrative 10-27-2022 Forest Burton MD - 10/27/2022 10:46 AM EST Note Date & Type Note Facility 10-27-2022 History of Presen t illness Narrative ESTABLISHED PATIENT OFFICE VISIT Follow-up elevated PSA. He denies bothersome lower urinary tract symptoms or hematuria. His PSA decreased this visit to 4.65. LAB RESULTS No results found for: CREAT No results found for: PSA, PSASC No results found for: UGLUCPOC, UBILIPOC, UKETONPOC, USGPOC, UHBPOC, UPHPOC, UPROPOC, UUROPOC, UNITPOC, UWBCPOC, UCOLPOC, UCLARPOC] ALLERGIES Not on File MEDICATIONS: clopidogrel (PLAVIX) 75 mg tablet aspirin, enteric coated (ASPIRIN, ENTERIC COATED) 81 mg EC tablet Take by mouth. atorvastatin (LIPITOR) 80 mg tablet metoprolol tartrate, short acting, (LOPRESSOR) 25 mg tablet losartan (COZAAR) 50 mg tablet REVIEW OF SYSTEMS GENERAL: No unintentional weight loss, malaise or fevers. NEUROLOGIC: pt is alert and oriented GASTROINTESTINAL: No nausea, vomiting, or diarrhea GENITOURINARY: No history of dysuria, frequency or incontinence MUSCULOSKELETAL: Negative for joint pain or swelling, back pain or muscle pain SKIN: Negative for lesions, rash, and itching. ACTIVE PROBLEM LIST Elevated Prostate Specific Antigen (Psa) HISTORIES PAST MEDICAL HISTORY Diagnosis Date Elevated prostate specific antigen (PSA) History reviewed. No pertinent family history. PAST SURGICAL HISTORY Procedure Laterality Date PT ED HEART AND VASCULAR SOCIAL HISTORY Social History Tobacco Use Smoking status: Former Types: Cigarettes Quit date: 2009 Years since quittin.1 Smokeless tobacco: Never Substance Use Topics Alcohol use: Never Drug use: Never PHYSICAL EXAMINATION General appearance: Well appearing, alert, in no acute distress, well-hydrated, well nourished Psych Alert and oriented to person, place and time Genitourinary: MALE EXAM: He has no rectal mass. His prostate was enlarged but soft. There were no nodules. ASSESSMENT/PLAN: 1. Elevated prostate specific antigen (PSA) - ICD9: 790.93, ICD10: R97.20 I will repeat a PSA in 1 year. - BLADDER SCAN - PSA/PROSTSPECAG DIAG Forest Burton MD documented in this encounter [facility] Evaluation note Note Date & Type Note Facility documented in this encounter [facility] Summary Purpose Family History No Family History Records FoundNo Family History Records Found Advance Directives No Advanced Directives Records FoundNo Advanced Directives Records Found Additional Source Comments (unrecognized sect ion and content) No Status Records FoundNo Status Records Found INFORMATION SOURCE (unrecogn ized section and content) DATE CREATED AUTHOR AUTHOR'S ORGANIZ ATION 10/27/2022 [facility] Ce nter Source Comments (unrecognize d section and content) In the event this informatio n is protected by the Federal Confidentiality of Alcohol and Drug Abuse Patient Records regulations: The Federal rules restrict any use of the information to criminally investigate or prosecute any alcohol or drug abuse patient.[facility] Reason for Visit (unrecogniz ed section and content) Care Teams (unrecognized sec tion and content) FOR RECORDS PERTAINING TO PATIENTS WHO ARE OR HAVE BEEN ENROLLED IN A CHEMICAL DEPENDENCY/SUBSTANCEABUSE PROGRAM, SOME INFORMATION MAY BE OMITTED. This clinical summary was aggregated from multiple sources. Caution should be exercised in using it in the provision of clinical care. This summary normalizes information from multiple sources, and as a consequence, information in this document may materially change the coding, format and clinical context of patient data. In addition, data may be omitted in some cases. CLINICAL DECISIONS SHOULD BE BASED ON THE PRIMARY CLINICAL RECORDS. [facility]. provides no warranty or guarantee of the accuracy or completeness of information in this document.
--- NOTE | 2023-10-14 16:30 | STRESSREP ---
Stress Test Report Date: 10/12/2023 Procedure: Exercise tolerance test/imaging study Indications: Coronary artery disease Consent: Per the patient Procedure: The patient exercised on a Cam protocol for 9 minutes achieving a peak heart rate of 148 bpm (96% predicted maximal heart rate) with a peak blood pressure 166/90 mmHg and a peak MET capacity of 10.1 METs. The baseline ECG demonstrated sinus rhythm. The peak exercise ECG demonstrated sinus tachycardia with ST changes in inferior leads. Rare PVC noted during exercise. The functional capacity was considered adequate. There was no complaint of chest discomfort during exercise or recovery. The examination was discontinued secondary to target heart rate being achieved. The patient was injected with 14.1 mCi of technetium 99m Cardiolite and subsequently rest SPECT Cardiolite nuclear imaging was obtained in the horizontal long, vertical long, and short axis views. Post-exercise, the patient was injected with 44 point mCi of technetium 99m Cardiolite and subsequently stress SPECT Cardiolite nuclear imaging was obtained in the horizontal long, vertical long, and short axis views. A gated Cardiolite study at peak stress was obtained. Rest and stress SPECT Cardiolite nuclear imaging status post realignment, normalization, and attenuation correction, demonstrates the appearance of relative uniform tracer uptake and myocardial perfusion appearing within normal limits. There is end systolic thickening and brightening. The gated Cardiolite study demonstrates myocardial thickening and inward wall motion. The reported LVEF is 67%. Impression: 1. Technically adequate (percent predicted maximal heart rate greater than 85%) exercise tolerance test 2. Peak exercise ECG with ST changes suggestive of ischemia however perfusion study within normal limits as noted below. 3. Rare PVC noted 4. Rest and stress SPECT Cardiolite nuclear imaging demonstrate relative uniform tracer uptake and myocardial perfusion appearing within normal limits. 5. The gated Cardiolite study reports an LVEF of 67%. This note was generated with [employer] software. It may contain incorrect words, spelling, and punctuation that were not noted in checking the note before signing.
== END | disposition home or self-care (01) ==
LOC: CVS 06:23
PROVIDERS: PCP Family Medicine; Referring Provider Physician Assistant Medical; Visit Provider Physician Assistant Medical
DX: Z95.5 Presence of coronary angioplasty implant and graft (principal)
CPT/HCPCS: 78452; 93017; A9500

== ENCOUNTER 2024-05-12 19:36 | Emergency (ER) | payer MEDICARE, OTHER, SELFPAY ==
[2024-05-12 19:37] VITALS: BP 128/76; PULSE 52; RESP 16; TEMP 36.2; O2SAT 95; BMI 29.9
--- NOTE | 2024-05-12 20:10 | ED.VIS.LOWEX ---
HPI History of Present Illness Chief Complaint: Laceration Detail of Chief Complaint: Laceration left knee Informant: patient Narrative Narrative: Patient presents to the emergency department with complaint of laceration to his left knee. Patient states that he was cutting some trees with a chainsaw when he held the chainsaw off to the side without his hand on the trigger and must of accidentally bumped his knee against a chain. He sustained a laceration to the knee. He put a Band-Aid on it but continues to bleed. He is on Plavix and aspirin. He is unsure of his last tetanus shot. [facility] Medical History Atherosclerotic heart disease of [place] coronary artery without angina pectoris Bradycardia Encounter for long-term current use of high risk medication Essential hypertension HLD (hyperlipidemia) NSTEMI (non-ST elevated myocardial infarction) Old myocardial infarction Palpitations Presence of stent in coronary artery (~02/05/08) Syncope Home Medications ?Medication ?Instructions ?Recorded ?Last Taken ?Type aspirin 81 mg tablet,delayed 81 mg PO QDAY 12/23/17 Unknown History release (Adult Low Dose Aspirin) atorvastatin 80 mg tablet See Rx Instructions .Route 07/19/23 Unknown Rx .COMPLEX #90 tabs clopidogrel 75 mg tablet See Rx Instructions .Route 07/19/23 Unknown Rx .COMPLEX #90 tabs losartan 50 mg tablet See Rx Instructions .Route 07/19/23 Unknown Rx .COMPLEX #90 tabs metoprolol tartrate 25 mg tablet See Rx Instructions .Route 07/19/23 Unknown Rx .COMPLEX #90 tabs Allergy/AdvReac Type Severity Reaction Status Date / Time Iodinated Contrast Media Allergy Intermediate NEEDS Verified 05/12/24 19:40 FOLLOW-UP Family History Father CAD (coronary artery disease) Diabetes Myocardial infarction Mother Hypertension HLD (hyperlipidemia) Sister Hypertension Sister Asthma Sister Arthritis Surgical History H/O percutaneous transluminal coronary angioplasty History of appendectomy hx trigger finger release Presence of coronary angioplasty implant and graft S/P PTCA (percutaneous transluminal coronary angioplasty) Social History Smoking Status: Former smoker how long ago did patient quit smokin years ago alcohol intake: never substance use type: does not use caffeine: Yes Type: carbonated beverages Number of servings: 2 what type of physical activity do you participate in: none seatbelt use: always do you feel safe at home: Yes ROS ROS ED Review of Systems ROS Unobtainable: other Constitutional Constitutional ED: Reports lethargy; Denies chills, fever(s), sweats or weight loss Eyes Eyes: Denies blurry vision, change in vision or diplopia ENT ENT ED: Denies rhinorrhea or sore throat Cardiovascular Cardiovascular: Denies chest pain, orthopnea or racing heartbeat Respiratory/Chest Respiratory/Chest: Denies cough, dyspnea, dyspnea on exertion, orthopnea or sputum Gastrointestinal Gastrointestinal: Denies abdominal pain, diarrhea, nausea or vomiting Genitourinary Genitourinary ED: Denies dysuria, hematuria or urinary frequency Musculoskeletal Musculoskeletal: Denies arthralgias, back pain, myalgias or neck pain Integumentary Reports other Details: Laceration left knee ; Denies abscess, Abrasions or rash Neurologic Neurologic: Denies headache(s) or weakness Psychiatric Psychiatric: Denies anxiety, depression or suicidal thoughts Endocrine Endocrinology: Denies polydipsia, polyphagia or polyuria Hematologic/Lymphatic Hematologic/Lymphatic: Denies easy bleeding, easy bruising or lymphadenopathy Allergic/Immunologic Allergic/Immunologic ED: Denies mouth swelling, tongue swelling or urticaria EXAM Physical Exam Const Vital Signs: 05/12/24 19:37 Temperature 97.2 F L Temperature Source Temporal Pulse Rate 52 L Respiratory Rate 16 Blood Pressure 128/76 H Blood Pressure Mean 93 Pulse Ox 95 Oxygen Delivery Method Room Air Positive well nourished and well developed General Appearance ED: well developed and NAD HEENT Reports TM's clear and moist mucous membranes normocephalic and atraumatic; Negative for trauma or tenderness Tympanic Membrane ED: Yes TM's clear Eyes PERRL and EOMs intact bilaterally General Eye ED: Negative for pale conjunctiva or scleral icterus Neck no lymphadenopathy, supple and no JVD General: Negative for tenderness Chest Wall inspection of chest normal and palpation of chest normal Chest: Negative for tenderness Resp normal respiratory effort and clear to auscultation bilaterally Effort and Inspection: Negative for respiratory distress or pain with movement Auscultation: Negative for rhonchi, wheezes or diminished lung sounds Cardio regular rate, regular rhythm, S1 normal heart sound, S2 normal heart sound and no murmurs Peripheral Pulses: pulses 2+ throughout GI normal to inspection, nondistended, normoactive bowel sounds, soft to palpation, non-tender, non-distended and no masses Back/Spine no CVA tenderness and no thoracic nor lumbar tenderness Extremity normal to inspection General Extremety ED: Negative for edema General Extremity: Negative for edema Neuro oriented x3, CN's II-XII intact bilaterally, no sensory deficits noted and gait normal Sensorium / Orientation: awake, alert, oriented to person, oriented to place and oriented to time Motor Exam: strength 5/5 throughout and strength abnormal Psych mental status grossly normal Skin no rashes or lesions noted and no wounds Skin Narrative: Left knee-patient has a 3 cm laceration over the anterior aspect of the patella. Appears to be superficial but small amount of venous oozing. No bony tenderness on exam. No foreign bodies noted within the wound. Neurovascular intact distally. He has normal range of motion flexion extension at the knee MDM MDM MDM Narrative Medical decision making narrative: Patient with a 3 cm laceration to the left anterior aspect of the knee just anterior to the patella. Appears to be superficial and linear. Unsure of his last tetanus. He will receive a tetanus booster. Please see procedure note for suture repair. Wound was anesthetized with 1% lidocaine with epi and had good hemostasis with that. I was able to inspect the wound and it does not seem to go down to the patella. No foreign bodies noted within the wound. This relatively superficial. After suture repair clean dressing was applied. He was advised to follow-up with primary care physician in 10 days for suture removal. He is to return if increasing pain, redness, swelling, purulent drainage, or condition should worsen anyway. Procedures Lacerations Left knee laceration: Length: 1.18 in Depth: Sub Q Shape: Linear Prep: Sterile Conditions Laceration repair: Lidocaine with epi Irrigated (ml): 100 Number of Sutures/Jomar: 3 Suture Information: Ethilon, Simple and 4-0 Discharge Plan Triage Chief Complaint: Laceration ED Provider: Kelly Shrestha Dx/Rx/DC Orders Clinical Impression: Knee laceration Instructions: ED Laceration, All Closures Prescriptions: No Action aspirin [Adult Low Dose Aspirin] 81 mg tablet,delayed release (DR/EC) 81 mg PO QDAY losartan 50 mg tablet See Rx Instructions .ROUTE .COMPLEX Qty: 90 3RF Dose Instruction: TAKE 1 TABLET DAILY Rx Instructions: TAKE 1 TABLET DAILY atorvastatin 80 mg tablet See Rx Instructions .ROUTE .COMPLEX Qty: 90 3RF Dose Instruction: TAKE 1 TABLET DAILY Rx Instructions: TAKE 1 TABLET DAILY clopidogrel 75 mg tablet See Rx Instructions .ROUTE .COMPLEX Qty: 90 3RF Dose Instruction: TAKE 1 TABLET DAILY Rx Instructions: TAKE 1 TABLET DAILY metoprolol tartrate 25 mg tablet See Rx Instructions .ROUTE .COMPLEX Qty: 90 3RF Dose Instruction: TAKE 1/2 TABLET TWICE A DAY Rx Instructions: TAKE 1/2 TABLET TWICE A DAY Primary Care Provider: Leon Quinteros Referrals: Leon Quinteros MD [Primary Care Provider] - 10 Day for suture removal Print Language: Russian Disposition Disposition: Home, Self Care
[2024-05-12] MEDS: Diphth,Pertuss(Acell),Tet Vac 0.5 ML Vial IM (20:50)
[2024-05-12] MEDS: Lidocaine 1% /Epi 1:100 (20ml) 20 ML Vial 4 ML INFILT (20:50)
[2024-05-12 20:58] VITALS: BP 142/74; PULSE 89; RESP 16; TEMP 36.6; O2SAT 99
== END 2024-05-12 20:59 | disposition home or self-care (01) ==
PROVIDERS: Emergency Provider Emergency Medicine; PCP Family Medicine; Visit Provider Emergency Medicine
DX: S81.012A Laceration without foreign body, left knee, initial encounter (principal); I25.10 Atherosclerotic heart disease of native coronary artery without angina pectoris; I25.2 Old myocardial infarction; W29.3XXA Contact with powered garden and outdoor hand tools and machinery, initial encounter; Z87.891 Personal history of nicotine dependence; Z95.5 Presence of coronary angioplasty implant and graft; Z23 Encounter for immunization
CPT/HCPCS: 12001; 90471; 90715; 99283

== ENCOUNTER → 2024-08-25 | Outpatient (CLI) | payer MEDICARE, OTHER, SELFPAY ==
[2024-08-25 10:07] LABS: Absolute Lymphocyte Count 1.97 X10^3/uL (0.83-4.51); Absolute Neutrophil Count 4.4 X10^3/uL (2.0-7.7); Basophil# 0.07 X10^3/uL; Basophil% 0.9 % (0-1); Eosinophil# 0.34 X10^3/uL; Eosinophils% 4.6 % (0-5); Hematocrit 45.6 % (40-54); Hemoglobin 15.3 g/dL (13.0-16.5); Lymphocyte # 1.97 X10^3/ul (0.83-4.51); Lymphocyte % 26.7 % (19-41); Mean Corp Hgb Conc 33.6 g/dL (32-36); Mean Corpuscular Hgb 31.1 pg (27.0-32.0); Mean Corpuscular Volume 92.7 fL (80-94); Monocyte# 0.56 X10^3/uL; Monocyte% 7.6 % (0-10); NRBC Flagged by Analyzer 0 % (0-5); Neutrophil # 4.42 X10^3/uL (2.7-7.7); Neutrophil % 59.8 % (47-70); Platelet Count 319 K/mm3 (150-450); RBC Distribution Width CV 13.1 % (11.6-14.6); RBC Distribution Width SD 44.5 fl (35.1-43.9); Red Blood Count 4.92 M/mm3 (4.6-6.2); White Blood Count 7.4 K/mm3 (4.4-11.0)
[2024-08-25 10:28] LABS: ALB/GLOB Ratio 0.9 RATIO (0.9-2.4); AST(SGOT) 17 U/L (15-37); Alanine Aminotransfer ALT/SGPT 23 U/L (16-61); Albumin, Serum 3.5 g/dL (3.2-5.0); Alkaline Phosphatase 75 U/L (45-117); Anion Gap 4 (5-15); BUN 15 mg/dL (7-18); BUN/Creat Ratio 16.1 RATIO (10-20); Calcium,Total 9.5 mg/dL (8.5-10.1); Chloride 107 mmol/L (98-107); Cholesterol 148 mg/dL (200); Creatinine, Serum 0.93 mg/dL (0.70-1.30); EST Glomerular Filtration Rate 86 mL/min (>60); Est Glom Filt Rate - Afr Amer 104 mL/min (>60); Globulin 3.7 g/dL (2.2-4.2); Glucose 132 mg/dL (74-106); High Density Lipoprotein 37 mg/dL; PSA,Total - Annual Screen 7.22 ng/mL (0.00-4.00); Protein, Total 7.2 g/dL (6.4-8.2); Sodium Level 139 mmol/L (136-145); Triglycerides 51 mg/dL; Very Low Density Lipoprotein 10 mg/dL (5-40)
[2024-08-28 15:27] LABS: Vitamin D,25 Hydroxy 38.9 ng/mL
== END | disposition home or self-care (01) ==
LOC: MFPLAB 09:02
PROVIDERS: PCP Family Medicine; Referring Provider Family Medicine; Visit Provider Family Medicine
DX: I25.10 Atherosclerotic heart disease of native coronary artery without angina pectoris (principal); I10 Essential (primary) hypertension; R97.20 Elevated prostate specific antigen [PSA]; Z12.5 Encounter for screening for malignant neoplasm of prostate
CPT/HCPCS: 36415; 80053; 80061; 82306; 84153; 85025; G0103

== ENCOUNTER → 2025-02-23 | Outpatient (CLI) | payer MEDICARE, OTHER, SELFPAY ==
[2025-02-23 10:45] LABS: Cholesterol 118 mg/dL (<=200); High Density Lipoprotein 38 mg/dL; Low Density Lipoprotein Calc. 67 mg/dL; Triglycerides 61 mg/dL; Very Low Density Lipoprotein 12 mg/dL (5-40); cholesterol:hdl ratio screen 3.07
[2025-02-23 10:49] LABS: Hemoglobin A1c 5.9 % (<=5.6)
== END | disposition home or self-care (01) ==
LOC: MFPLAB 08:40
PROVIDERS: PCP Family Medicine; Referring Provider Family Medicine; Visit Provider Family Medicine
DX: E78.00 Pure hypercholesterolemia, unspecified (principal); R73.03 Prediabetes
CPT/HCPCS: 36415; 80061; 83036